=== PATIENT | female | born 1970 ===

== ENCOUNTER 2020-04-29 10:35 | Outpatient (REF) | payer MEDICAID, OTHER, SELFPAY ==
--- NOTE | ~2020-04-29 | MM_ITS ---
EXAMINATION: MM SCREENING DIGITAL BREAST TOMOSYNTHESIS, BILATERAL CLINICAL INFORMATION: Screening. Asymptomatic. The lifetime risk of breast cancer based on the Tyrer-Cuzick Model is 8%. COMPARISON: Mammography: 01/19/2019, and outside mammography 01/18/2018, 12/14/2016 ([facility]). TECHNIQUE: Digital breast tomosynthesis is performed in both the craniocaudal and mediolateral oblique views along with computer-aided detection (CAD). Synthesized 2D images are generated from the tomosynthesis. FINDINGS: There are scattered areas of fibroglandular density (ACR BI-RADS breast composition Category b). There are no significant masses, abnormal calcifications, or other abnormalities. There is no developing density. There are some vascular calcifications present in the bilateral medial and bilateral outer breasts. MM/MM tomosynthesis screening BI IMPRESSION: No mammographic evidence of malignancy. ASSESSMENT: BI-RADS 2: Benign RECOMMENDATION: Routine annual mammography screening. This patient's information was entered into a reminder system with a target due date for their next mammogram.
== END 2020-04-29 10:36 | disposition home or self-care (01) ==
LOC: HO.MAMMO 10:35
PROVIDERS: PCP Internal Medicine Geriatric Medicine; Visit Provider Internal Medicine Geriatric Medicine
DX: Z12.31 Encounter for screening mammogram for malignant neoplasm of breast (principal)
CPT/HCPCS: 77063; 77067

== ENCOUNTER 2020-11-14 16:59 | Outpatient (REF) | payer OTHER, SELFPAY | END 2020-11-14 17:00 | disposition home or self-care (01) | LOC: HO.SCI 16:59 | PROVIDERS: Visit Provider Internal Medicine Geriatric Medicine | DX: Z13.89 Encounter for screening for other disorder (principal) ==

== ENCOUNTER → 2020-12-11 10:50 | Outpatient (BNVA) | payer OTHER, MEDICAID, SELFPAY | PROVIDERS: PCP Internal Medicine Geriatric Medicine; Visit Provider Orthopaedic Surgery | DX: M65.332 Trigger finger, left middle finger (principal); M65.331 Trigger finger, right middle finger; R20.0 Anesthesia of skin; R20.2 Paresthesia of skin | CPT/HCPCS: 20550; J1100 ==

== ENCOUNTER 2021-01-16 07:26 | Day surgery (SDC) | payer OTHER, MEDICAID, SELFPAY ==
[2021-01-16 07:45] VITALS: BP 143/89; PULSE 100; RESP 16; TEMP 36.8; O2SAT 99
[2021-01-16 07:52] VITALS: BMI 26.5
--- NOTE | 2021-01-16 07:58 | MHC.SHP ---
Pre-Procedural Eval Section A Date of Service: 01/16/21 The patient is an INPATIENT: No Changes since office visit: No Cold of Flu in the past 2 weeks, No New Medical Problems, No Changes in Medication and No Patient answered all questions The History & Physical has been completed within 30 days and I have reviewed it.: Yes Section B Chief Complaint: trigger finger Allergies: Allergies Allergy/AdvReac Type Severity Reaction Status Date / Time No Known Allergies Allergy Verified 12/11/20 11:26 Plan I have reviewed the history and physical and performed a pertinent physical examination on my patient. No changes have occurred unless specified.
--- NOTE | 2021-01-16 07:58 | W.PM.OPN ---
Operative Note Operative Note Date of Service: 01/16/21 Narrative: Operative Note Preop diagnosis: 1. Left middle finger Trigger finger Postop diagnosis: 1. Left middle finger Trigger finger Procedure: 1. Left middle finger A1 jose antonio release 2. Left FDS tendon excision of intratendinous ganglion Surgeon: Jasmin Carter MD Anesthesia: local block using 1% lidocaine with epinephrine Findings: No locking or catching after A1 jose antonio release EBL: Less than 5 mL Tourniquet time: None Findings: Abrasion of the FDS tendon with some thickening, fibrosis and a small intratendinous ganglion. Complications: None Disposition: Brought to recovery room in stable condition Plan: Follow-up for 7-10 days for wound check and suture removal Indications: The patient is 50 years old, with a left middle finger trigger finger that has been unresponsive to nonoperative management. The risks and benefits of operative treatment including but not limited to risk of damage to blood vessels, nerves, tendons, infection, persistent pain, persistent symptoms, recurrence or possible need for additional surgery were discussed with the patient and the patient wishes to proceed with surgery. Procedure: Once consent was obtained a local block was performed in the preop area using a combination of 1% lidocaine with epinephrine. The patient was then brought back to the operating suite and placed on the operative table in supine position. A tourniquet was applied to the proximal aspect of the left upper extremity and the limb was prepped and draped in a standard surgical fashion. Once assured that we had a good block, a 1.5 cm oblique incision was made centered over the A1 jose antonio of the left middle finger . The incision was made through the skin to the subcutaneous tissues using a #15 blade. Careful dissection was made down to the level of the A1 jose antonio using tenotomy scissors, with care being taken to protect the nearby neurovascular structures. A longitudinal incision was made in the A1 jose antonio 1st using a #15 blade, then using tenotomy scissors under direct visualization. The A1 jose antonio was noted to be thickened. The FDS tendon was noted to have a small intertendinous ganglion as well as some fibrosis and thickening in the area of the A1 jose antonio and just distal to the A1 jose antonio. I used a 15. Blade and some tenotomy scissors to excise the small, approximately 2-3 mm ganglion from the flexor digitorum superficialis tendon. At this point I had the patient make a fist and extend her fingers numerous times, and we no longer saw any locking or catching of the digit with flexion and extension. Once satisfied with our A1 jose antonio release the wound was copiously irrigated with normal saline and hemostasis was obtained with a brief period of local pressure. The skin edges were reapproximated with some 5.0 nylon suture material and a sterile dressing was applied. The patient appears to have tolerated the procedure well and with no complications. All digits were well vascularized at the conclusion of the case.
[2021-01-16 09:30] VITALS: BP 133/84; PULSE 98; RESP 16; TEMP 36.5; O2SAT 99
== END 2021-01-16 09:56 | disposition home or self-care (01) ==
PROVIDERS: PCP Internal Medicine Geriatric Medicine; Visit Provider Orthopaedic Surgery
PROC: (CPT 26055; principal; 2021-01-16 08:30)
DX: M65.332 Trigger finger, left middle finger (principal); M67.442 Ganglion, left hand; R20.2 Paresthesia of skin; J30.2 Other seasonal allergic rhinitis; N95.1 Menopausal and female climacteric states
CPT/HCPCS: 26160; 26055

== ENCOUNTER 2021-01-23 10:25 | Outpatient (REF) | payer OTHER, MEDICAID, SELFPAY ==
--- NOTE | 2021-01-23 10:31 | EMG_ITS ---
Right median and ulnar motor and sensory studies were performed. Right radial sensory study was performed and paraspinal muscles were tested with a needle. 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 MD JT Soto/JOHNNY / [id number]
== END 2021-01-23 10:26 | disposition home or self-care (01) ==
LOC: HO.NEURO 10:25
PROVIDERS: Visit Provider Internal Medicine Geriatric Medicine
DX: G56.03 Carpal tunnel syndrome, bilateral upper limbs (principal); R20.0 Anesthesia of skin; R20.2 Paresthesia of skin
CPT/HCPCS: 95886; 95909

== ENCOUNTER → 2021-01-29 10:21 | Outpatient (BNVA) | payer OTHER, MEDICAID, SELFPAY | PROVIDERS: PCP Internal Medicine Geriatric Medicine; Visit Provider Orthopaedic Surgery ==

== ENCOUNTER 2021-02-03 09:42 | Day surgery (SDC) | payer OTHER, MEDICAID, SELFPAY ==
[2021-02-03 10:36] VITALS: BP 125/81; PULSE 73; RESP 16; TEMP 36.5; O2SAT 100
[2021-02-03 10:42] VITALS: BMI 26.5
--- NOTE | 2021-02-03 11:25 | P.OP_ITS ---
Operative Note Operative Note Date of Service: 02/03/21 Narrative: Preop diagnosis: 1. right Carpal tunnel syndrome 2. right middle finger trigger finger Postop diagnosis: same Procedure: 1. right Carpal tunnel release 2. right middle finger A1 jose antonio release Surgeon: Jasmin Carter MD Anesthesia: local block using 1% lidocaine with epinephrine Findings: Thickened transverse carpal ligament. no locking and catching after A1 jose antonio release EBL: Less than 5 mL Specimens: None Complications: None Disposition: Brought to recovery room in stable condition Plan: Follow-up for 10-14 days for wound check and suture removal Indications: The patient is 50 years old, with right carpal tunnel syndrome and right middle finger trigger finger that have been unresponsive to nonoperative management. The risks and benefits of operative treatment inc luding but not limited to risk of damage to blood vessels, nerves, tendons, infection, persistent pain, persistent symptoms, or possible need for additional surgery were discussed with the patient and the patient wishes to proceed with surgery. Procedure: Once consent was obtained a local block was performed using a combination of 1% lidocaine with epinephrine. The patient was then brought back to the operating suite and placed on the operative table in supine position. A tourniquet was applied to the proximal aspect of the right upper extremity and the limb was prepped and draped in a standard surgical fashion. Once assured that we had a good block, a 1.5 cm oblique incision was made centered over the A1 jose antonio of the right middle finger . The incision was made through the skin to the subcutaneous tissues using a #15 blade. Careful dissection was made down to the level of the A1 jose antoino using tenotomy scissors, with care being taken to protect the nearby neurovascular structures. A longitudinal incision was made in the A1 jose antonio 1st using a #15 blade, then using tenotomy scissors under direct visualization. The A1 jose antonio was noted to be thickened. Following our A1 jose antonio release, we no longer saw any locking or catching of the digit with flexion and extension. Once assured that we had a good block, a 1.5 cm longitudinal incision was made centered over the right carpal tunnel. The incision was made through the skin to the subcutaneous tissues using a #15 blade. Dissection was made down to the level of the transverse carpal ligament with care being taken to protect the palmar cutaneous nerve. Once the transverse carpal ligament was clearly visualized, a longitudinal incision was made in the transverse carpal ligament 1st using a #15 blade, then using tenotomy scissors under direct visualization. Care was taken to look for and protect the motor branch of the median nerve when seen in this area. Once satisfied with our carpal tunnel release the wound was copiously irrigated with normal saline and hemostasis was obtained with a brief period of local pressure. The skin edges were reapproximated with some 5.0 nylon suture material and a sterile dressing was applied. The patient appears to have tolerated the procedure well and with no complications. All digits were well vascularized at the conclusion of the case.
--- NOTE | 2021-02-03 11:25 | MHC.SHP ---
Pre-Procedural Eval Section A Date of Service: 02/03/21 The patient is an INPATIENT: No Changes since office visit: No Cold of Flu in the past 2 weeks, No New Medical Problems, No Changes in Medication and No Patient answered all questions The History & Physical has been completed within 30 days and I have reviewed it.: Yes Section B Chief Complaint: carpal tunnel release,trigger finger release Allergies: Allergies Allergy/AdvReac Type Severity Reaction Status Date / Time No Known Allergies Allergy Verified 12/11/20 11:26 Plan I have reviewed the history and physical and performed a pertinent physical examination on my patient. No changes have occurred unless specified.
[2021-02-03 13:05] VITALS: BP 132/81; PULSE 83; RESP 16; TEMP 36.6; O2SAT 98
== END 2021-02-03 13:57 ==
LOC: HO.SSS 09:42
PROVIDERS: PCP Internal Medicine Geriatric Medicine; Visit Provider Orthopaedic Surgery
PROC: (CPT 64721; principal; 2021-02-03 12:10)
DX: G56.01 Carpal tunnel syndrome, right upper limb (principal); M65.331 Trigger finger, right middle finger; J30.2 Other seasonal allergic rhinitis; N95.1 Menopausal and female climacteric states
CPT/HCPCS: 64721; 26055

== ENCOUNTER → 2021-02-18 12:20 | Outpatient (BNVA) | payer OTHER, MEDICAID, SELFPAY | PROVIDERS: PCP Internal Medicine Geriatric Medicine; Visit Provider Physician Assistant ==

== ENCOUNTER → 2021-03-12 09:23 | Outpatient (BNVA) | payer OTHER, MEDICAID, SELFPAY | PROVIDERS: PCP Internal Medicine Geriatric Medicine; Visit Provider Orthopaedic Surgery ==

== ENCOUNTER 2021-05-07 10:27 | Outpatient (REF) | payer OTHER, SELFPAY ==
--- NOTE | ~2021-05-07 | MM_ITS ---
EXAMINATION: MM SCREENING DIGITAL BREAST TOMOSYNTHESIS, BILATERAL CLINICAL INFORMATION: Screening. Asymptomatic. The lifetime risk of breast cancer based on the Tyrer-Cuzick Model is 6.7%. COMPARISON: Mammography: April 29, 2020 and studies dating back to December 10, 2015 TECHNIQUE: Digital breast tomosynthesis is performed in both the craniocaudal and mediolateral oblique views along with computer-aided detection (CAD). Synthesized 2D images are generated from the tomosynthesis. FINDINGS: The breasts are heterogeneously dense, which may obscure small masses (ACR BI-RADS breast composition Category c). There are no significant masses, abnormal calcifications, or other abnormalities. MM/MM tomosynthesis screening BI IMPRESSION: There are no significant changes from prior study. ASSESSMENT: BI-RADS 1: Negative RECOMMENDATION: Routine annual mammography screening. This patient's information was entered into a reminder system with a target due date for their next mammogram.
== END 2021-05-07 10:28 | disposition home or self-care (01) ==
LOC: HO.MAMMO 10:27
PROVIDERS: PCP Internal Medicine Geriatric Medicine; Visit Provider Internal Medicine Geriatric Medicine
DX: Z12.31 Encounter for screening mammogram for malignant neoplasm of breast (principal)
CPT/HCPCS: 77063; 77067

== ENCOUNTER → 2021-05-20 10:24 | Outpatient (BNVA) | payer OTHER, SELFPAY | PROVIDERS: PCP Internal Medicine Geriatric Medicine; Visit Provider Orthopaedic Surgery | DX: Z13.89 Encounter for screening for other disorder (principal) ==

== ENCOUNTER 2021-05-21 08:04 | Outpatient (REF) | payer OTHER, SELFPAY ==
--- NOTE | 2021-05-21 08:09 | EMG_ITS ---
This is a 51-year-old woman with a 9-month history of left upper extremity pain and numbness. On examination, she is alert, oriented with normal intellectual functions. Cranial nerves II through XII are normal. She has mild atrophy of the left abductor pollicis brevis with decreased sensation in the median nerve distribution. IMPRESSION: Carpal tunnel syndrome. Nerve conduction EMG study: Moderately severe carpal tunnel syndrome on the left. Normal EMG of the left C5-T1 innervated muscles. MD SHANE Alexandra/JOHNNY / [id number]
== END 2021-05-21 08:05 | disposition home or self-care (01) ==
LOC: HO.NEURO 08:04
PROVIDERS: Visit Provider Orthopaedic Surgery
DX: R20.0 Anesthesia of skin (principal); R20.2 Paresthesia of skin
CPT/HCPCS: 95885; 95910

== ENCOUNTER 2021-08-28 07:28 | Day surgery (SDC) | payer OTHER, SELFPAY ==
[2021-08-28 06:59] VITALS: BMI 26.5
--- NOTE | 2021-08-28 07:45 | W.PM.OPN ---
Operative Note Operative Note Date of Service: 08/28/21 Narrative: Operative Note Preop diagnosis: 1. right ring finger Trigger finger 2. Right trigger thumb Postop diagnosis: same Procedure: 1. right ring finger A1 jose antonio release 2. Right thumb A1 jose antonio release Surgeon: Jasmin Carter MD Anesthesia: local block using 1% lidocaine with epinephrine Findings: No locking or catching after A1 jose antonio release EBL: Less than 5 mL Tourniquet time: None Specimens: None Complications: None Disposition: Brought to recovery room in stable condition Plan: Follow-up for 10-14 days for wound check and suture removal Indications: The patient is 51 years old, with a right trigger thumb and right ring finger trigger finger that have been unresponsive to nonoperative management. The risks and benefits of operative treatment including but not limited to risk of damage to blood vessels, nerves, tendons, infection, persistent pain, persistent symptoms, recurrence or possible need for additional surgery were discussed with the patient and the patient wishes to proceed with surgery. Procedure: Once consent was obtained a local block was performed in the preop area using a combination of 1% lidocaine with epinephrine. The patient was then brought back to the operating suite and placed on the operative table in supine position. A tourniquet was applied to the proximal aspect of the right upper extremity and the limb was prepped and draped in a standard surgical fashion. Once assured that we had a good block, a 1.5 cm oblique incision was made centered over the A1 jose antonio of the right ring finger . The incision was made through the skin to the subcutaneous tissues using a #15 blade. Careful dissection was made down to the level of the A1 jose antonio using tenotomy scissors, with care being taken to protect the nearby neurovascular structures. A longitudinal incision was made in the A1 jose antonio 1st using a #15 blade, then using tenotomy scissors under direct visualization. The A1 jose antonio was noted to be thickened. Following our A1 jose antonio release, we no longer saw any locking or catching of the digit with flexion and extension. Once assured that we had a good block, a 1.5 cm oblique incision was made centered over the A1 jose antonio of the right thumb . The incision was made through the skin to the subcutaneous tissues using a #15 blade. Careful dissection was made down to the level of the A1 jose antonio using tenotomy scissors, with care being taken to protect the nearby neurovascular structures. A longitudinal incision was made in the A1 jose antonio 1st using a #15 blade, then using tenotomy scissors under direct visualization. The A1 jose antonio was noted to be thickened. Following our A1 jose antonio release, we no longer saw any locking or catching of the digit with flexion and extension. Once satisfied with our A1 jose antonio release the wounds were copiously irrigated with normal saline and hemostasis was obtained with a brief period of local pressure. The skin edges were reapproximated with some 5.0 nylon suture material and a sterile dressing was applied. The patient appears to have tolerated the procedure well and with no complications. All digits were well vascularized at the conclusion of the case.
[2021-08-28 07:46] VITALS: BP 142/53; PULSE 71; RESP 18; TEMP 36.8; O2SAT 99
[2021-08-28 09:46] VITALS: BP 139/74; PULSE 73; RESP 18; TEMP 36.2; O2SAT 97
--- NOTE | 2021-08-28 09:49 | MHC.SHP ---
Pre-Procedural Eval Section A Date of Service: 08/28/21 The patient is an INPATIENT: No Changes since office visit: No Cold of Flu in the past 2 weeks, No New Medical Problems, No Changes in Medication and No Patient answered all questions The History & Physical has been completed within 30 days and I have reviewed it.: Yes Section B Chief Complaint: trigger finger and thumb Allergies: Allergies Allergy/AdvReac Type Severity Reaction Status Date / Time No Known Allergies Allergy Verified 05/20/21 10:35 Plan I have reviewed the history and physical and performed a pertinent physical examination on my patient. No changes have occurred unless specified.
== END 2021-08-28 10:05 | disposition home or self-care (01) ==
PROVIDERS: PCP Internal Medicine Geriatric Medicine; Visit Provider Orthopaedic Surgery
PROC: (CPT 26055; principal; 2021-08-28 08:40)
DX: M65.311 Trigger thumb, right thumb (principal); M65.341 Trigger finger, right ring finger; R20.0 Anesthesia of skin
CPT/HCPCS: 26055 ×2; J0171

== ENCOUNTER 2022-05-20 09:15 | Outpatient (REF) | payer OTHER, SELFPAY ==
--- NOTE | ~2022-05-20 | MM_ITS ---
EXAMINATION: MM SCREENING DIGITAL BREAST TOMOSYNTHESIS, BILATERAL CLINICAL INFORMATION: Screening. Asymptomatic. The lifetime risk of breast cancer based on the Tyrer-Cuzick Model is 7%. COMPARISON: Mammography: 05/07/2021, 04/29/2020, 01/19/2019; outside mammography 01/18/2018. TECHNIQUE: Digital breast tomosynthesis is performed in both the craniocaudal and mediolateral oblique views along with computer-aided detection (CAD). Synthesized 2D images are generated from the tomosynthesis. FINDINGS: There are scattered areas of fibroglandular density (ACR BI-RADS breast composition Category b). There are no significant masses, abnormal calcifications, or other abnormalities. Parenchymal pattern is similar to prior studies. There are scattered minor asymmetries similar to prior exams. No developing density or architectural abnormality. The axilla are unremarkable. No significant changes. MM/MM tomosynthesis screening BI IMPRESSION: No mammographic evidence of malignancy. ASSESSMENT: BI-RADS 1: Negative RECOMMENDATION: Routine annual mammography screening. This patient's information was entered into a reminder system with a target due date for their next mammogram.
== END 2022-05-20 09:16 | disposition home or self-care (01) ==
LOC: HO.MAMMO 09:15
PROVIDERS: PCP Internal Medicine Geriatric Medicine; Visit Provider Internal Medicine Geriatric Medicine
DX: Z12.31 Encounter for screening mammogram for malignant neoplasm of breast (principal)
CPT/HCPCS: 77063; 77067

== ENCOUNTER 2022-10-14 10:30 | Outpatient (AMB) | payer OTHER, SELFPAY ==
--- NOTE | 2022-10-14 10:34 | MHC.OFFVIS ---
Intake Vital Signs 10/14/22 10:37 Height 5 ft Weight 148 lb BMI 28.9 BP 152/105 H Blood Pressure Location Lt brachial Position Sitting Pulse 78 Intake Visit Reasons: Colonoscopy Screening Intake Note: Patient new consult for 1st pre colonoscopy screening. Patient cc: occasional constipation and some GERD. Denies any other GI issues. Clearing Distribution Clerk Required: Yes Clearing Distribution Clerk Name: Archana [facility] [place] Accompanied by: Self / Same As Patient Allergies No Known Allergies Allergy (Verified 10/14/22 10:34) Medication List - Last Reconciled 10/14/22 by Julia Tejada PA-C bisacodyl (Dulcolax (bisacodyl)) 20 mg (4 x 5 mg) PO ONCE 1 day cetirizine 5 mg PO DAILY PRN hydrocodone-acetaminophen 5-325 mg 1 tab PO Q4-6H PRN polyethylene glycol 3350 (Miralax) 238 grams PO ONCE PRN 1 day venlafaxine 25 mg PO DAILY HPI HPI Comments History of Present Illness Details A 52-year-old female referred for screening colonoscopy-no known family history of GI cancer Bowels normal, appetite is good No cardiac or respiratory issues No nausea, vomiting, hematemesis, hematochezia fever or chills PFSH Medical History (Updated 10/14/22 @ 11:00 by Julia Tejada PA-C) Menopausal hot flushes Seasonal allergies Surgical History Hx of bilateral oophorectomy Hx of hand surgery Hx of ovarian cystectomy Family History (Updated 10/14/22 @ 10:47 by Treav Fenton) Mother Diabetes Renal failure Father Asthma Social History (Updated 10/14/22 @ 10:46 by Julia Tejada PA-C) Household Members Other:: Patient Tobacco Use Status: Never used Tobacco Current occupational status: employed Current occupation: rt hand / cook Review of Systems Const All systems reviewed & are unremarkable except as noted in HPI and below Card Denies chest pain and Denies dyspnea Resp Denies dyspnea GI Denies abdominal pain, Denies heartburn, Denies nausea and Denies vomiting Physical Exam Vital Signs: Last Vital Signs Pulse 78 10/14/22 10:37 BP 152/105 H 08/30/23 10:37 BMI result Body Mass Index 28.9 Const General: cooperative, healthy appearing, comfortable and no acute distress Orientation/consciousness: patient oriented x3 Limitations: language barrier Eyes Sclerae: sclerae normal Resp Effort & Inspection: normal respiratory effort and able to speak in complete sentences Auscultation: clear to auscultation bilaterally, no rales, no rhonchi and no wheezes Cardio Rate: regular rate Rhythm: regular rhythm Heart sounds: S1 normal heart sound present and S2 normal heart sound present GI Palpation (GI): Soft to palpation and nontender Auscultation: normal bowel sounds Skin General skin exam: no rashes or lesions noted Neuro General: patient oriented x3 Extrem General: Yes full ROM Psych Appearance: grossly normal and well kempt Mental Status: mental status grossly normal Speech and movement: Normal speech and movement present and Clear speech present Affect: normal affect Attitude: cooperative Thought process: Normal thought process present Thought content: Normal thought content present Insight: Good insight present (Psych) Judgement: Good judgement present (Psych) Assessment & Plan Assessment & Plan (1) Encounter for screening colonoscopy: Comment: No GI complaints Code(s): Z12.11 - Encounter for screening for malignant neoplasm of colon Plan: Index screening colonoscopy Plan Screening colonoscopy MiraLax Gatorade split-needs assembler product Orders: Orders Colonoscopy - GI Use Only Today Z12.11 - Encounter for screening for malignant neoplasm of colon Medications: New bisacodyl (Dulcolax (bisacodyl)) Take 4 tablets by mouth at 12:00pm the day before your procedure. 20 mg (4 x 5 mg) PO ONCE 1 day 4 tabs 0RF colonoscopy prep Z12.11 - Encounter for screening for malignant neoplasm of colon polyethylene glycol 3350 (Miralax) Take as directed by mouth the day before your procedure. 238 grams PO ONCE 1 day PRN 238 grams 0RF laxative effect Patient Instructions: Index screening colonoscopy, MiraLax Gatorade split prep Discussed procedure, rare risks, need for escorted due to anesthesia Encouraged to call questions or concerns Appreciate the opportunity assist in the care the patient Coding Level of Care Code New Pt Level 3 (39530) Diagnoses Encounter for screening colonoscopy Z12.11 Time Spent (min) 25 Comment Clearing Distribution Clerk, Archana
[2022-10-14 10:37] VITALS: BP 152/105; PULSE 78; BMI 28.9
== END 2022-10-14 13:28 | disposition home or self-care (01) ==
PROVIDERS: PCP Internal Medicine Geriatric Medicine; Visit Provider Physician Assistant
DX: Z01.818 Encounter for other preprocedural examination (principal); Z12.11 Encounter for screening for malignant neoplasm of colon
CPT/HCPCS: S0285

== ENCOUNTER → 2022-10-14 10:30 | Outpatient (BNVA) | payer OTHER, SELFPAY | PROVIDERS: PCP Internal Medicine Geriatric Medicine; Visit Provider Physician Assistant ==

== ENCOUNTER 2023-01-13 08:06 | Outpatient (AMB) | payer OTHER, SELFPAY ==
--- NOTE | 2023-01-13 09:11 | A.OFFVIS_ITS ---
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 States her pain is mainly at the base of her thumb. States pain started about 2 month ago and has worsen especially with twisting of wrist, pinching and grabbing movement. patient would like to discuss injection. 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 She denies any kind of fall or injury. She complains of right radial-sided wrist pain, worse with pinching, gripping, and twisting activities. She has known left carpal tunnel syndrome, which was not discussed today. FOR[facility]LY [facility], LATER [facility] Medical History (Updated 01/13/23 @ 09:31 by Milton Coates) Menopausal hot flushes Seasonal allergies Surgical History Hx of bilateral oophorectomy Hx of hand surgery Hx of ovarian cystectomy Family History (Updated 10/14/22 @ 10:47 by Treva Fenton) Mother Diabetes Renal failure Father Asthma Social History Household Members Other:: Patient Tobacco Use Status: Never used Tobacco Current occupational status: employed Current occupation: rt hand / cook Review of Systems Const All systems reviewed & are unremarkable except as noted in HPI and below Physical Exam Vital Signs: BMI result Body Mass Index 28.9 Const General: no acute distress and alert Orientation/consciousness: patient oriented x3 Neuro General: patient oriented x3 Extrem Other: Evaluation of right Upper Extremity: The patient is alert, oriented, and in no acute distress Neuro: Median, Ulnar, Radial nerves motor and sensory intact and sensation is normal to the tips of all digits No thenar or intrinsic wasting Good APB muscle belly firing and good finger cross Vascular: Cap refill brisk ROM: She can make a fist and extend all her digits No locking or catching Tender over the 1st dorsal compartment Pos Clari test on the right, negative on the left. No tenderness over the basal joint No tenderness over the MCP joint Nerve Conduction Study: IMPRESSION: Moderately severe carpal tunnel syndrome on the left. Normal EMG of the left C5-T1 innervated muscles. Elmer Jacobo MD 05/21/21 Psych Appearance: grossly normal Affect: normal affect Attitude: cooperative Office Procedures Fracture Care Details: No fracture, injection [id number] Fracture Billing Code: Fracture Billing Code Assessment & Plan Assessment & Plan (1) Carpal tunnel syndrome of left wrist: Code(s): G56.02 - Carpal tunnel syndrome, left upper limb (2) De Quervain's tenosynovitis, right: Code(s): M65.4 - Radial styloid tenosynovitis [de Quervain] Plan Assessment and plan: 1. Right De Quervain's Tenosynovitis Positive Clari test This is her most symptomatic complaint. I educated her about this condition I discussed operative and non-operative treatment options The patient would like to proceed with an injection I discussed activity modification, she is to limit or avoid any heavy or repetitive pinching, gripping, or twisting activities She was fitted for a comfort cool brace to wear with daily activity Injection #1: The risks and benefits of a steroid injection including but not limited to risk of damage to blood vessels, nerves, tendons, infection, skin bleaching, failure to improve symptoms, increased pain, and possible need for further injections or other intervention were discussed with the patient and the patient wishes to proceed with the steroid injection. Once consent was obtained, I sterilely prepped the area over the 1st dorsal compartment of the Right thumb. I then injected the 1st dorsal compartment with a combination of 1 mL of dexamethasone (4mg/ml), and 1% lidocaine. The patient tolerated the procedure well with no complications and good resolution of their symptoms prior to leaving clinic. If the patient continues to have pain 6-8 weeks following this injection, they may call to schedule appointment to discuss alternative treatment options She will follow up prn 2. Left Carpal tunnel syndrome, moderate-severe Symptoms intermittent, not daily No complaint about this today. 3. Right trigger thumb, S/P release 4. Right ring finger trigger finger, S/P release DOS: 08/28/22 With full resolution of her symptoms 5. Right carpal tunnel syndrome, S/P release DOS: 02/03/21 She has had good resolution of her symptoms 6. Right middle finger trigger finger, S/P release DOS: 02/03/21 Good resolution of symptoms Scribed for Jasmin Carter MD by Milton Coates, medical record clerk, on 01/13/23 at 9:30 AM, EST. Coding Level of Care Code Est Pt Level 3 (20155) Diagnoses Carpal tunnel syndrome of left wrist G56.02 De Quervain's tenosynovitis, right M65.4 CPT Codes Fracture Care - Fracture Billing Code: Fracture Billing Code ([id number])
[2023-01-13 09:15] VITALS: BMI 28.9
== END 2023-01-13 09:51 | disposition home or self-care (01) ==
PROVIDERS: PCP Internal Medicine Geriatric Medicine; Visit Provider Orthopaedic Surgery
DX: G56.02 Carpal tunnel syndrome, left upper limb (principal); M65.4 Radial styloid tenosynovitis [de Quervain]
CPT/HCPCS: 20550; 99213

== ENCOUNTER → 2023-01-13 08:06 | Outpatient (BNVA) | payer OTHER, SELFPAY | PROVIDERS: PCP Internal Medicine Geriatric Medicine; Visit Provider Orthopaedic Surgery | DX: M65.4 Radial styloid tenosynovitis [de Quervain] (principal); G56.02 Carpal tunnel syndrome, left upper limb | CPT/HCPCS: 20550; J1100 ==

== ENCOUNTER 2023-05-26 09:16 | Outpatient (REF) | payer OTHER, SELFPAY | END 2023-05-26 09:17 | disposition home or self-care (01) | LOC: HO.MAMMO 09:16 | PROVIDERS: PCP Internal Medicine Geriatric Medicine; Visit Provider Internal Medicine Geriatric Medicine | DX: Z12.31 Encounter for screening mammogram for malignant neoplasm of breast (principal) | CPT/HCPCS: 77063; 77067 ==

== ENCOUNTER → 2023-05-26 09:30 | Outpatient (BNV) | payer OTHER, SELFPAY | PROVIDERS: PCP Internal Medicine Geriatric Medicine; Visit Provider Radiology Diagnostic Radiology | DX: Z12.31 Encounter for screening mammogram for malignant neoplasm of breast (principal) | CPT/HCPCS: 77063; 77067 ==

== ENCOUNTER 2023-06-02 09:42 | Outpatient (AMB) | payer OTHER, SELFPAY ==
[2023-06-02 10:31] VITALS: BMI 28.9
--- NOTE | 2023-06-02 10:31 | A.OFFVIS_ITS ---
Intake Vital Signs 06/02/23 10:31 Height 5 ft Weight 148 lb BMI 28.9 Intake Visit Reasons: Newprob-LT DeQuervains tendonitis Intake Note: Mini 53 yr old right hand dominant female presents today for a new problem visit for her left hand/wrist and thumb pain. States she is ready to discuss CTR for her left hand as well as a possible trigger release as discussed in her prior visit. She also mentioned she is having in her wrist when she uses her hand alot through out the day. EMG for her left hand done in 2021. Allergies No Known Allergies Allergy (Verified 06/02/23 10:38) HPI Newprob-LT DeQuervains tendonitis HPI Details Ingris is a 53 year old right hand dominant Indonesian speaking woman who returns with complaints of new left thumb pain & hand numbness. She complains of painful locking of her left thumb. She complains of numbness in her left thumb, index, and middle fingers. 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 [facility]LY [facility] Medical History (Updated 06/02/23 @ 10:51 by Milton Coates) Menopausal hot flushes Seasonal allergies Surgical History Hx of hand surgery Hx of bilateral oophorectomy Hx of ovarian cystectomy Family History (Updated 10/14/22 @ 10:47 by Treva Fenton) Mother Diabetes Renal failure Father Asthma Social History Household Members Other:: Patient Tobacco Use Status: Never used Tobacco Current occupational status: employed Current occupation: rt hand / cook Physical Exam Vital Signs: BMI result Body Mass Index 28.9 Const General: no acute distress and alert Orientation/consciousness: patient oriented x3 Neuro General: patient oriented x3 Extrem Other: Evaluation of left Upper Extremity: The patient is alert, oriented, and in no acute distress Neuro: Decreased subjective sensation in the median nerve distribution today in clinic. Normal sensation in the ulnar nerve distribution No thenar or intrinsic wasting Good APB muscle belly firing and good finger cross Vascular: Cap refill brisk ROM: She can make a fist and extend all her digits Visible and palpable locking & catching of the thumb Tender over the thumb a1 jose antonio Negative Clari test No tenderness over the 1st dorsal compartment Nerve Conduction Study: IMPRESSION: Moderately severe carpal tunnel syndrome on the left. Normal EMG of the left C5-T1 innervated muscles. Elmer Jacobo MD 05/21/21 Psych Appearance: grossly normal Affect: normal affect Attitude: cooperative Assessment & Plan Assessment & Plan (1) Carpal tunnel syndrome of left wrist: Code(s): G56.02 - Carpal tunnel syndrome, left upper limb (2) Trigger thumb, left thumb: Code(s): M65.312 - Trigger thumb, left thumb Plan Assessment and plan: 1. Left trigger thumb 2. Left Carpal tunnel syndrome, moderate-severe Dense numbness I educated her about these conditions I discussed operative and non-operative treatment options The patient would like to proceed with surgery The risks and benefits of operative treatment were discussed with the patient and the patient wishes to proceed with surgery. These risks include, but are not limited to risk of damage to blood vessels, nerves, tendons, infection, recurrence, incomplete relief of preoperative symptoms, persistent pain, possible need for further surgery and the risks associated with regional blocks and anesthesia. The plan is to take the patient to the operating room sometime in the next few weeks for the following procedures: 1. Left trigger thumb release, under local 2. Left carpal tunnel release, under local All of the preoperative paperwork including the consent was reviewed today. All the patient's questions were answered. The patient understands that they will be contacted by our newborn hearing screener soon to schedule this procedure. She would like this done at the end of August, after 09/05/23, as her restaurant will be closed for the following weeks and she will not have to miss work. She denies Diabetes, blood thinners, asthma, heart, lung, kidney issues 3. Right De Quervain's Tenosynovitis, S/P injection Date of Injection: 01/13/23 No complaints today 4. Right trigger thumb, S/P release 5. Right ring finger trigger finger, S/P release DOS: 08/28/22 With full resolution of her symptoms 6. Right carpal tunnel syndrome, S/P release DOS: 02/03/21 She has had good resolution of her symptoms 7. Right middle finger trigger finger, S/P release DOS: 02/03/21 Good resolution of symptoms Scribed for Jasmin Carter MD by Milton Coates, medical corps officer, on at 10:50 AM, EST. Coding Level of Care Code Est Pt Level 4 (85458) Diagnoses Carpal tunnel syndrome of left wrist G56.02 Trigger thumb, left thumb M65.312
== END 2023-06-02 10:54 | disposition home or self-care (01) ==
PROVIDERS: PCP Internal Medicine Geriatric Medicine; Visit Provider Orthopaedic Surgery
DX: G56.02 Carpal tunnel syndrome, left upper limb (principal); M65.312 Trigger thumb, left thumb
CPT/HCPCS: 99214

== ENCOUNTER → 2023-06-02 09:42 | Outpatient (BNVA) | payer OTHER, SELFPAY | PROVIDERS: PCP Internal Medicine Geriatric Medicine; Visit Provider Orthopaedic Surgery ==

== ENCOUNTER 2023-06-22 | Outpatient (REF) | payer OTHER, SELFPAY ==
[2023-06-17 13:16] LABS: BV Int Neg Control Negative (Negative); BV Int Pos Control Positive (Positive)
[2023-06-23 23:39] LABS: HPV mRNA E6/E7 rflx Not Detected (Not Detected)
== END 2023-06-22 00:01 | disposition home or self-care (01) ==
LOC: HO.HHCLNP
PROVIDERS: Visit Provider Advanced Practice Midwife
DX: Z12.4 Encounter for screening for malignant neoplasm of cervix (principal); Z11.51 Encounter for screening for human papillomavirus (HPV); N89.8 Other specified noninflammatory disorders of vagina
CPT/HCPCS: 87480; 87510; 87624; 87660; 88142

== ENCOUNTER 2023-09-13 08:03 | Day surgery (SDC) | payer OTHER, SELFPAY ==
[2023-09-13 08:43] VITALS: BP 146/97; PULSE 85; RESP 16; TEMP 36.1; O2SAT 98; BMI 28.9
--- NOTE | 2023-09-13 09:29 | MHC.SHP ---
Pre-Procedural Eval Section A - 24 Hr Update-Section A only Date of Service: 09/13/23 The patient is an INPATIENT: No Changes since office visit: No Cold of Flu in the past 2 weeks, No New Medical Problems, No Changes in Medication and No Patient answered all questions The patient has been examined within 24 hours of the surgical procedure. The History & Physical has been completed within 30 days and I have reviewed it.: Yes Section B - Complete if H&P > 30 days Chief Complaint: carparl tunnel release,trigger release Allergies: Allergies Allergy/AdvReac Type Severity Reaction Status Date / Time No Known Allergies Allergy Verified 06/02/23 10:38 Exam Exam Comment: Left carpal tunnel syndrome and left trigger thumb Plan Diagnosis/Plan: Unchanged I have reviewed the history and physical and performed a pertinent physical examination on my patient. No changes have occurred unless specified. Time Spent With Patient Time: Total time managing care of this patient today ____ minutes.
--- NOTE | 2023-09-13 09:30 | W.PM.OPN ---
Operative Note Operative Note Date of Service: 09/13/23 Narrative: Preop diagnosis: 1. Left Carpal tunnel syndrome 2. Left trigger thumb Postop diagnosis: same Procedure: 1. Left Carpal tunnel release 2. Left trigger thumb release Surgeon: Jasmin Carter MD Occupational Health Physiotherapist: None Anesthesia: local block using 1% lidocaine with epinephrine Findings: Thickened transverse carpal ligament. EBL: Less than 5 mL Specimens: None Complications: None Disposition: Brought to recovery room in stable condition Plan: Follow-up for 10-14 days for wound check and suture removal Indications: The patient is 53 years old, with left carpal tunnel syndrome and a left trigger thumb that have been unresponsive to nonoperative management. The risks and benefits of operative treatment including but not limited to risk of damage to blood vessels, nerves, tendons, infection, persistent pain, persistent symptoms, or possible need for additional surgery were discussed with the patient and the patient wishes to proceed with surgery. Procedure: Once consent was obtained a local block was performed using a combination of 1% lidocaine with epinephrine. The patient was then brought back to the operating suite and placed on the operative table in supine position. The left upper extremity was prepped and draped in a standard surgical fashion. Once assured that we had a good block, a 1.5 cm oblique incision was made centered over the A1 jose antonio of the left thumb . The incision was made through the skin to the subcutaneous tissues using a #15 blade. Careful dissection was made down to the level of the A1 jose antonio using tenotomy scissors, with care being taken to protect the nearby neurovascular structures. A longitudinal incision was made in the A1 jose antonio 1st using a #15 blade, then using tenotomy scissors under direct visualization. The A1 jose antonio was noted to be thickened. Following our A1 jose antonio release, we no longer saw any locking or catching of the digit with flexion and extension. Once assured that we had a good block, a 2.0 cm longitudinal incision was made centered over the left carpal tunnel. The incision was made through the skin to the subcutaneous tissues using a #15 blade. Dissection was made down to the level of the transverse carpal ligament with care being taken to protect the palmar cutaneous nerve. Once the transverse carpal ligament was clearly visualized, a longitudinal incision was made in the transverse carpal ligament 1st using a #15 blade, then using tenotomy scissors under direct visualization. Care was taken to look for and protect the motor branch of the median nerve when seen in this area. Once satisfied with our carpal tunnel release the wound was copiously irrigated with normal saline and hemostasis was obtained with a brief period of local pressure. The skin edges were reapproximated with some 5.0 nylon suture material and a sterile dressing was applied. The patient appears to have tolerated the procedure well and with no complications. All digits were well vascularized at the conclusion of the case.
[2023-09-13 10:57] VITALS: BP 119/71; PULSE 80; RESP 16; O2SAT 98
== END 2023-09-13 10:59 | disposition home or self-care (01) ==
PROVIDERS: PCP Internal Medicine Geriatric Medicine; Visit Provider Orthopaedic Surgery
PROC: (CPT 64721; principal; 2023-09-13 09:30)
PROC: (CPT 26055; 2023-09-13 09:30)
DX: G56.02 Carpal tunnel syndrome, left upper limb (principal); M65.312 Trigger thumb, left thumb; R20.0 Anesthesia of skin; J30.2 Other seasonal allergic rhinitis; Z98.890 Other specified postprocedural states
CPT/HCPCS: 64721; 26055; J0171

== ENCOUNTER → 2023-09-13 08:03 | Outpatient (BNV) | payer OTHER, SELFPAY | PROVIDERS: PCP Internal Medicine Geriatric Medicine; Visit Provider Orthopaedic Surgery | DX: G56.02 Carpal tunnel syndrome, left upper limb (principal); M65.312 Trigger thumb, left thumb | CPT/HCPCS: 26055; 64721 ==

== ENCOUNTER 2023-09-29 12:00 | Outpatient (AMB) | payer OTHER, SELFPAY ==
--- NOTE | 2023-09-29 12:06 | MHC.OFFVIS ---
Intake Visit Reasons: PO LT CTR LT thumb trigger 09/13/23 AR Intake Note: Mini is a 53 yo right hand dominant female who presents today post operatively s/p left CTR and left thumb trigger release done by Dr. Carter, DOS 09/13/23. Patient reports tenderness around incision. Denies numbness, tingling, and locking on finger. Sutures removed in office today and steri strips applied. District Plant Engineer Required: Yes District Plant Engineer Language: Shower Attendant Services: District Plant Engineer Present District Plant Engineer Name: MANOLO Parker/MEGHNA Information Interpreted: clinical only Allergies No Known Allergies Allergy (Verified 09/29/23 12:22) HPI HPI PO LT CTR LT thumb trigger 09/13/23 AR: Details: Ingris is a 53 year old right hand dominant Ghanaian speaking woman who returns S/P left carpal tunnel & trigger thumb release, DOS: 09/13/23 She says she is doing well, and her sensation is now normal. She reports some tenderness about her incision but says this is tolerable. 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 [facility] Medical History (Updated 06/02/23 @ 10:51 by Milton Coates) Menopausal hot flushes Seasonal allergies Surgical History Hx of hand surgery Hx of bilateral oophorectomy Hx of ovarian cystectomy Family History (Updated 10/14/22 @ 10:47 by Treva Fenton) Mother Diabetes Renal failure Father Asthma Social History Household Members Other:: Comment: counts correct Patient Tobacco Use Status: Never used Tobacco Current occupational status: employed Current occupation: rt hand / cook Review of Systems Const All systems reviewed & are unremarkable except as noted in HPI and below Physical Exam Const General: no acute distress and alert Orientation/consciousness: patient oriented x3 Neuro General: patient oriented x3 Extrem Other: The patient was alert oriented and in no acute distress The incision is healing well with no erythema drainage or evidence of infection. Sutures removed and Steri-Strips applied She can make a fist and extend all her digits No locking or catching Sensation is intact and now normal in the median nerve distribution Cap refill is brisk Psych Appearance: grossly normal Affect: normal affect Attitude: cooperative Assessment & Plan Assessment & Plan (1) Carpal tunnel syndrome of left wrist: Code(s): G56.02 - Carpal tunnel syndrome, left upper limb Category: Medical (2) Trigger thumb, left thumb: Code(s): M65.312 - Trigger thumb, left thumb Category: Medical Plan Assessment and plan: 1. Left trigger thumb, S/P release DOS: 09/13/23 2. Left Carpal tunnel syndrome, S/P release DOS: 09/13/23 Pre-operatively with dense numbness Now with improving sensation The patient appears to be doing well post-operatively I educated her about the post-operative course I discussed activity modifications, she is to lift nothing heavier than a cellphone for the next two weeks She will perform gentle ROM exercises at home She should avoid any underwater activities for the next 5 days She should gently massage about the incision site to reduce the risk of hypersensitivity She can follow up prn 3. Right De Quervain's Tenosynovitis, S/P injection Date of Injection: 01/13/23 No complaints today 4. Right trigger thumb, S/P release 5. Right ring finger trigger finger, S/P release DOS: 08/28/22 With full resolution of her symptoms 6. Right carpal tunnel syndrome, S/P release DOS: 02/03/21 She has had good resolution of her symptoms 7. Right middle finger trigger finger, S/P release DOS: 02/03/21 Good resolution of symptoms Scribed for Jasmin Carter MD by josé Noe scribe, on 09/29/23 at 12:40 PM, EST. Scribe Plan - Not visible on output: Scribed for Jasmin Carter MD by josé Noe scribe, on [ ] at [ ], EST. Coding Level of Care Code Global (93195) Diagnoses Carpal tunnel syndrome of left wrist G56.02 Trigger thumb, left thumb M65.312
== END 2023-09-29 13:05 | disposition home or self-care (01) ==
PROVIDERS: PCP Internal Medicine Geriatric Medicine; Visit Provider Orthopaedic Surgery
DX: G56.02 Carpal tunnel syndrome, left upper limb (principal); M65.312 Trigger thumb, left thumb
CPT/HCPCS: 99024

== ENCOUNTER → 2023-09-29 12:00 | Outpatient (BNVA) | payer OTHER, SELFPAY | PROVIDERS: PCP Internal Medicine Geriatric Medicine; Visit Provider Orthopaedic Surgery ==

== ENCOUNTER 2023-10-06 10:17 | Outpatient (REF) | payer OTHER, SELFPAY ==
[2023-10-06 11:36] LABS: MANUAL DIFF FLAG NO
[2023-10-06 11:52] LABS: Basophils Absolute Auto 0.1 X10*3/uL (0.0-0.2); Eosinophils Absolute Auto 0.5 X10*3/uL (0.0-0.4); Eosinophils Percent Auto 8.9 % (0-4); Hematocrit 38.6 % (37.0-47.0); Hemoglobin 13.2 g/dl (12.0-16.0); Imm Gran Abs Auto 0.02 X10*3/uL (0.00-0.03); Imm Gran Pct Auto 0.3 % (0.0-0.4); Lymphocytes Absolute Auto 2.4 X10*3/uL (1.2-4.9); Lymphocytes Percent Auto 41.9 % (20-40); Mean Corpuscular HGB Conc 34.2 g/dl (31.0-35.0); Mean Corpuscular Hemoglobin 30.4 pg (27.0-33.0); Mean Corpuscular Volume 88.9 fL (80.0-98.0); Mean Platelet Volume 10.3 fL (9.4-12.3); Monocytes Absolute Auto 0.3 X10*3/uL (0.1-1.2); Monocytes Percent Auto 5.1 % (2-11); Neutrophils Absolute Auto 2.5 x10*3/uL (2.0-8.3); Neutrophils Percent Auto 42.8 % (45-73); Platelet Count 278 X10*3/uL (160-400); Red Blood Count 4.34 X10*6/uL (4.20-5.50); Red Cell Distribution Width 13.9 % (11.0-16.0); White Blood Count 5.8 X10*3/uL (4.8-10.8)
[2023-10-06 14:55] LABS: Alanine Aminotransferase 222 U/L (0-31); Albumin Level 4.7 g/dL (3.5-5.0); Alkaline Phosphatase 180 U/L (39-117); Anion Gap 13 (12-20); Aspartate Amino Transferase 93 U/L (5-31); Bilirubin Total 0.2 mg/dL (0.0-1.0); Blood Urea Nitrogen 18 mg/dL (9-16); Calcium 10.3 mg/dL (8.4-10.2); Carbon Dioxide 26 mmol/L (22-29); Chloride 106 mmol/L (96-108); Estimated Glomerular Filt Rate > 60; Glucose Random 143 mg/dL (60-115); Potassium 3.9 mmol/L (3.3-5.1); Sodium 141 mmol/L (135-145); Total Protein 8.2 g/dL (6.5-8.0)
== END 2023-10-06 10:18 | disposition home or self-care (01) ==
LOC: HO.HHCL 10:17
PROVIDERS: Visit Provider Internal Medicine Geriatric Medicine
DX: R12 Heartburn (principal)
CPT/HCPCS: 36415; 80053; 85025

== ENCOUNTER 2023-10-07 08:38 | Outpatient (REF) | payer OTHER, SELFPAY ==
[2023-10-07 12:44] LABS: HBS Num1 2.76 mIU/mL (0-7.99); HBsAGNum1 0.28 S/CO (0.00-0.99); Hepatitis B Surface Antigen Negative (Negative); ~HepC Num1 0.14 S/CO (0.00-0.79); ~Hepatitis B Surface Antibody NONREACTIVE (Nonreactive); ~Hepatitis C Antibody Nonreactive (Nonreactive)
[2023-10-07 12:50] LABS: Hepatitis A Antibody IgG REACTIVE (Nonreactive); Hepatitis A Antibody IgM 0.16 Index (0-0.79); ~Hepatitis A Antibody IgG 11.49 S/CO (0.00-0.99); ~Hepatitis A Antibody IgM Nonreactive (Nonreactive)
== END 2023-10-07 08:39 | disposition home or self-care (01) ==
LOC: HO.HHCL 08:38
PROVIDERS: Visit Provider Internal Medicine Geriatric Medicine
DX: R12 Heartburn (principal); R74.01 Elevation of levels of liver transaminase levels
CPT/HCPCS: 36415; 86706; 86708; 86709; 86803; 87338; 87340

== ENCOUNTER 2023-10-13 10:00 | Outpatient (REF) | payer OTHER, MEDICAID, SELFPAY ==
--- NOTE | ~2023-10-13 | US_ITS ---
EXAMINATION: US ABDOMEN COMPLETE CLINICAL INFORMATION: Epigastric pain, transaminitis. COMPARISON: None available. TECHNIQUE: Real-time imaging of the abdominal viscera. FINDINGS: PANCREAS: The head and body appear normal. The tail is obscured by bowel gas. ABDOMINAL AORTA: The proximal segment is obscured by bowel gas. The mid and distal segments are normal in caliber. INFERIOR VENA CAVA: Visualized portions are normal. LIVER: The liver is normal in size. The liver contour is normal. There is diffuse increased liver parenchymal echogenicity, consistent with infiltrative hepatocellular disease. No focal hepatic lesion. There is no intrahepatic biliary duct dilatation seen. GALLBLADDER: Normal. The gallbladder is physiologically distended without evidence of stones, sludge, polyps, wall thickening or pericholecystic fluid. COMMON BILE DUCT: Normal in caliber measuring 0.3 cm in diameter. RIGHT KIDNEY: Normal. No hydronephrosis. No renal calculi or focal parenchymal lesions. The kidney measures 10.0 cm in maximum dimension. LEFT KIDNEY: Indeterminate hypoechoic lesion in the upper pole may represent a solid lesion or complex cyst. This is not optimally visualized. No hydronephrosis or renal calculi. The kidney measures 9.5 cm in maximum dimension. SPLEEN: Normal. The spleen measures 8.6 cm in maximum dimension. FREE FLUID: None. US/US abdomen complete IMPRESSION: Echogenic liver consistent with chronic hepatocellular disease. Correlate clinically. No biliary ductal dilatation. Suboptimal imaging of a 3.0 cm hypoechoic lesion upper pole left kidney which could represent a solid renal mass or a complex cyst. Recommend further evaluation with CT/MRI abdomen without and with contrast renal mass protocol. Electronically signed by: Manuel Willams MD 10/27/2023 02:24 PM EDT
== END 2023-10-13 10:01 | disposition home or self-care (01) ==
LOC: HO.US 10:00
PROVIDERS: PCP Internal Medicine Geriatric Medicine; Visit Provider Internal Medicine Geriatric Medicine
DX: R74.01 Elevation of levels of liver transaminase levels (principal)
CPT/HCPCS: 76700

== ENCOUNTER 2023-10-21 09:55 | Outpatient (REF) | payer OTHER, MEDICAID, SELFPAY ==
[2023-10-21 11:56] LABS: Alanine Aminotransferase 124 U/L (0-31); Albumin Level 4.7 g/dL (3.5-5.0); Alkaline Phosphatase 109 U/L (39-117); Anion Gap 12 (12-20); Aspartate Amino Transferase 71 U/L (5-31); Bilirubin Total 0.3 mg/dL (0.0-1.0); Blood Urea Nitrogen 15 mg/dL (9-16); Calcium 10.3 mg/dL (8.4-10.2); Carbon Dioxide 27 mmol/L (22-29); Chloride 105 mmol/L (96-108); Estimated Glomerular Filt Rate > 60; Glucose Random 113 mg/dL (60-115); Potassium 4.1 mmol/L (3.3-5.1); Sodium 140 mmol/L (135-145); Total Protein 8.1 g/dL (6.5-8.0)
== END 2023-10-21 09:56 | disposition home or self-care (01) ==
LOC: HO.HHCL 09:55
PROVIDERS: Visit Provider Internal Medicine Geriatric Medicine
DX: Z13.89 Encounter for screening for other disorder (principal)
CPT/HCPCS: 36415; 80053

== ENCOUNTER 2023-10-29 10:02 | Outpatient (REF) | payer OTHER, SELFPAY ==
[2023-10-29 12:26] LABS: Alanine Aminotransferase 114 U/L (0-31); Albumin Level 4.5 g/dL (3.5-5.0); Alkaline Phosphatase 95 U/L (39-117); Anion Gap 13 (12-20); Aspartate Amino Transferase 92 U/L (5-31); Bilirubin Direct 0.1 mg/dL (0.0-0.5); Bilirubin Total 0.3 mg/dL (0.0-1.0); Blood Urea Nitrogen 14 mg/dL (9-16); Calcium 10.3 mg/dL (8.4-10.2); Carbon Dioxide 26 mmol/L (22-29); Chloride 108 mmol/L (96-108); Estimated Glomerular Filt Rate > 60; Glucose Random 104 mg/dL (60-115); Potassium 4.2 mmol/L (3.3-5.1); Sodium 143 mmol/L (135-145); Total Protein 7.5 g/dL (6.5-8.0)
== END 2023-10-29 10:03 | disposition home or self-care (01) ==
LOC: HO.HHCL 10:02
PROVIDERS: Visit Provider Internal Medicine Geriatric Medicine
DX: R74.01 Elevation of levels of liver transaminase levels (principal)
CPT/HCPCS: 36415; 80053; 82248

== ENCOUNTER 2023-11-17 09:06 | Day surgery (SDC) | payer OTHER, MEDICAID, SELFPAY ==
--- NOTE | 2023-11-15 15:01 | P.CONAN_ITS ---
Documented by User: Mabel Villagran NP 11/15/23 15:02 HPI - Anesthesia Eval Consult details Narrative: 53yo F for Colonoscopy PMFSH Active Problems Active Problems: All Active Problems Trigger thumb, left thumb (Acute) De Quervain's tenosynovitis, right (Acute) Encounter for screening colonoscopy (Acute) Carpal tunnel syndrome of left wrist (Acute) Trigger finger, right ring finger (Acute) Trigger finger of right thumb (Acute) Trigger finger, left middle finger (Acute) Trigger finger, right middle finger (Acute) Numbness and tingling in both hands (Acute) Carpal tunnel syndrome of right wrist (Acute) Past Medical History Medical History (System 11/02/23 @ 12:46 by Lorena Serrato) Menopausal hot flushes Seasonal allergies Family History Family History (System 11/02/23 @ 12:46 by Lorena Serrato) Mother Diabetes Renal failure Father Asthma Surgical History Surgical History Hx of hand surgery Hx of bilateral oophorectomy Hx of ovarian cystectomy Social History Social History (System 11/02/23 @ 12:46 by Lorena Serrato) Household Members Other:: Are you a primary congregational care pastor to a significant other at home: No Do you presently have visiting nurse or other home services: No Comment: counts correct Patient Tobacco Use Status: Never used Tobacco Use of substances other than those prescribed or required for medical reasons: No Have you been hit, kicked, punched, or otherwise hurt by someone within the past year? 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[employer] Meds Allergies Allergy/AdvReac Type Severity Reaction Status Date / Time No Known Allergies Allergy Verified 11/02/23 12:46 Home Medications ?Medication ?Instructions ?Recorded ?Confirmed ?Last Taken ?Type cetirizine 5 mg tablet 5 mg PO DAILY PRN Allergy Symptoms 12/11/20 09/13/23 Unknown History venlafaxine 25 mg tablet 25 mg PO DAILY 12/11/20 09/13/23 Unknown History Assessment and Plan Assessment Anesthesia Assessment: Chart Reviewed Documented by User: Natan Lorenzo MD 11/17/23 12:08 PMFSH Past Medical History Medical History (System 11/02/23 @ 12:46 by Lorena Serrato) Menopausal hot flushes Seasonal allergies Family History Family History (System 11/02/23 @ 12:46 by Lorena Serrato) Mother Diabetes Renal failure Father Asthma Family history of problems with anesthesia: No Surgical History Surgical History Hx of hand surgery Hx of bilateral oophorectomy Hx of ovarian cystectomy History of Problems with Anesthesia: No Social History Social History (System 11/02/23 @ 12:46 by Lorena Serrato) Household Members Other:: Are you a primary congregational care pastor to a significant other at home: No Do you presently have visiting nurse or other home services: No Comment: counts correct Patient Tobacco Use Status: Never used Tobacco Use of substances other than those prescribed or required for medical reasons: No Have you been hit, kicked, punched, or otherwise hurt by someone within the past year? 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[employer] Allergies Allergy/AdvReac Type Severity Reaction Status Date / Time No Known Allergies Allergy Verified 11/02/23 12:46 Home Medications ?Medication ?Instructions ?Recorded ?Confirmed ?Last Taken ?Type cetirizine 5 mg tablet 5 mg PO DAILY PRN Allergy Symptoms 12/11/20 09/13/23 Unknown History venlafaxine 25 mg tablet 25 mg PO DAILY 12/11/20 09/13/23 Unknown History Exam Airway Mallampati Class: II TM Dist: <=3cm Neck ROM: Full Loose/Missing/Broken Teeth: No Heart: ok Lungs: ok Assessment and Plan Assessment Anesthesia Assessment: Anesthesia Plan Discussed Final Anesthetic Review Family History of Problems with Anesthesia: No History of Problems with Anesthesia: No NPO: Yes ASA Class: I Final Preanesthetic Review: No Changes in Pt Med Stat, Meds/Allgs Chart Reviewed, Consent Obtained/Reviewed and Anes Risks/Benef Reviewed Patient Risk: Low Procedure Risk: Low Anesthetic Plan Anesthetic Plan: MAC: and Agree w/ Assess. and Plan Disposition: Standard PACU
[2023-11-17 10:44] VITALS: BMI 27.6
--- NOTE | 2023-11-17 10:52 | MHC.SHP ---
Pre-Procedural Eval Section A - 24 Hr Update-Section A only Date of Service: 11/17/23 Section B - Complete if H&P > 30 days Chief Complaint: screening Relevant Family History (Specify if Yes): No Relevant Social History: None Present Medications: see Short Stay Collaborative assessment Medical History: Significant History (Menopausal hot flushes Seasonal allergies) History of Previous Operations: Relevant previous surgery/procedure and date(s) (Hx of hand surgery Hx of bilateral oophorectomy Hx of ovarian cystectomy) Allergies: Allergies Allergy/AdvReac Type Severity Reaction Status Date / Time No Known Allergies Allergy Verified 11/02/23 12:46 Review of Systems Sugical H&P ROS: Negative: Constitution, Cardiovascular, Respiratory, Neurological, Psychiatric, Hem-Onc, Allergic/Immunologic, Gastrointestinal, Genitourinary, Musculoskeletal, Integumentary, Endocrine and Eyes/Ears/Nose/Throat Exam Surgical H&P Exam: Normal: HEENT, Normal: Heart, Normal: Lungs, Normal: Extremities, Normal: Abdomen, Normal: Skin and Normal: Neurological Plan Diagnosis/Plan: Unchanged I have reviewed the history and physical and performed a pertinent physical examination on my patient. No changes have occurred unless specified. Time Spent With Patient Time: Total time managing care of this patient today ____ minutes.
[2023-11-17 11:13] VITALS: BP 145/73; PULSE 89; RESP 16; TEMP 36.9; O2SAT 98
[2023-11-17] MEDS: Lactated Ringers 1,000 ML 100 ML IVCONT (11:21)
--- NOTE | 2023-11-17 12:30 | HO.OPN-COLON ---
Colonoscopy Operative Note Operative Note Date of Service: 11/17/23 Narrative: Operative Information Procedure Description: Colonoscopy Indication: screening Anesthesia: MAC COLONOSCOPY Instrument: Olympus variable stiffness ADULT scope 190L Colonoscopy Monitoring: Vital signs and clinical assessment, continuous EKG monitoring, Pulse oximetry, Carbon Dioxide monitoring and blood pressure monitoring were done throughout the procedure. Colon withdrawal time was 7 minutes. Procedure: The patient was placed in the left lateral decubitis position and pre-procedure medications were administered. After a digital rectal examination of the ano-rectum, the video colonoscope was inserted into the rectum and advanced through the colon to the cecum/TI. The colonoscope was slowly withdrawn in a retrograde panoramic fashion and the colon mucosa was carefully examined including a retroflexed view of the rectum. Findings and interventions are described below. Procedure Difficulty: easy Findings: Melanosis coli throughout the colon otherwise normal Terminal Ileum-normal Cecum:normal Right sided retroflexion- normal Ascending Colon: normal Transverse Colon -normal Descending Colon:normal Sigmoid Colon: normal Rectum: Retroflexion with small internal hemorrhoids seen, grade I Anorectum - normal Intervention: none Colon preparation: [place] Bowel Preparation Scale Right colon; 2 Transverse colon: 2 Left colon; 2 (0 = Unprepared colon segment with mucosa not seen due to solid stool that cannot be cleared. 1 = Portion of mucosa of the colon segment seen, but other areas of the colon segment not well seen due to staining, residual stool and/or opaque liquid. 2 = Minor amount of residual staining, small fragments of stool and/or opaque liquid, but mucosa of colon segment seen well. 3 = Entire mucosa of colon segment seen well with no residual staining, small fragments of stool or opaque liquid) Impression and Post Procedure Diagnosis: melanosis coli internal hemorrhoids Plan: High fiber diet leaflet Avoid straining at stool, epsom salts and sitz bath, anusol supps or cream Repeat Colonoscopy in 10 years or earlier if clinically indicated Above findings were reviewed with the patient and relevant handouts were provided if indicated.
[2023-11-17 12:35] VITALS: BP 89/60; PULSE 98; RESP 16; TEMP 36.6; O2SAT 97
[2023-11-17 12:40] VITALS: BP 101/64; PULSE 88; RESP 16; O2SAT 98
[2023-11-17 12:50] VITALS: BP 126/72; PULSE 84; RESP 17; TEMP 36.8; O2SAT 99
== END 2023-11-17 13:35 | disposition home or self-care (01) ==
PROVIDERS: PCP Internal Medicine Geriatric Medicine; Visit Provider Internal Medicine Gastroenterology
PROC: 0DJD8ZZ Inspection of Lower Intestinal Tract, Via Natural or Artificial Opening Endoscopic (ICD-10-PCS; CPT 45378; principal; 2023-11-17 11:30)
DX: Z12.11 Encounter for screening for malignant neoplasm of colon (principal); K63.89 Other specified diseases of intestine; K64.0 First degree hemorrhoids; J30.2 Other seasonal allergic rhinitis; N95.1 Menopausal and female climacteric states; R23.2 Flushing; Z79.899 Other long term (current) drug therapy; Z98.890 Other specified postprocedural states
CPT/HCPCS: 45378; J2003; J2704

== ENCOUNTER → 2023-11-17 09:06 | Outpatient (BNV) | payer OTHER, MEDICAID, SELFPAY | PROVIDERS: PCP Internal Medicine Geriatric Medicine; Visit Provider Internal Medicine Gastroenterology | DX: Z12.11 Encounter for screening for malignant neoplasm of colon (principal); K64.0 First degree hemorrhoids; K63.89 Other specified diseases of intestine | CPT/HCPCS: 45378 ==

== ENCOUNTER 2023-11-23 14:57 | Outpatient (REF) | payer OTHER, SELFPAY ==
--- NOTE | ~2023-11-23 | CT_ITS ---
EXAMINATION: CT ABDOMEN AND PELVIS WITHOUT AND WITH CONTRAST CLINICAL INFORMATION: Follow-up left renal upper pole 3.0 cm lesion. COMPARISON: Abdominal ultrasound dated 10/05/2023. TECHNIQUE: Multidetector volumetric imaging was performed of the abdomen and pelvis before and after the IV administration of mL of Omnipaque 300 intravenous contrast. Sagittal and coronal reformatted images were obtained on the technologist's workstation. This CT examination was performed using dose optimization techniques as appropriate, variously including the following: *Automated exposure control *Adjustment of mA and/or kV according to patient size (this includes techniques or standardized protocols for targeted exams where dose is matched to indication/reason for exam; i.e. extremities or head) *Use of iterative reconstruction technique DLP: 378 mGy-cm FINDINGS: LUNG BASES: There is mild bibasilar dependent hypoaeration. LIVER, GALLBLADDER, AND BILIARY TREE: The liver is normal in size, shape and generally diminished in attenuation. No focal hepatic lesion or biliary ductal dilatation is present. The gallbladder is unremarkable with no evidence of radiopaque gallstones, gallbladder wall thickening, or obvious pericholecystic inflammatory changes. PANCREAS: Unremarkable SPLEEN: Unremarkable ADRENAL GLANDS: Unremarkable KIDNEYS AND URETERS: The kidneys are normal in size, shape, and attenuation. No hydronephrosis, hydroureter, or calculi seen. No perinephric stranding. GASTROINTESTINAL TRACT: The small and large bowel are unremarkable. At the base of the appendix, a 4 mm appendicolith is noted. There is no appendiceal thickening or adjacent fat stranding to suggest acute appendicitis. ABDOMINAL WALL: No significant hernia is appreciated. LYMPH NODES: Normal VASCULAR: Unremarkable OSSEOUS STRUCTURES: Unremarkable CT/CT abdomen wo/w IV con IMPRESSION: 1. There is no focal left renal lesion noted on CT to correspond with the lesion noted on the recent abdominal ultrasound examination. No urinary mass, calculus or obstructive uropathy is seen. 2. A 4 mm appendicolith is noted at the base of the appendix, without finding to suggest acute appendicitis. Fleischner guidelines were followed. Electronically signed by: Herberth Perez MD 01/09/2024 10:59 PM [facility]
[2023-11-23] MEDS: iohexoL 350 MG/ML 100 ML INFUS..BTL IV (16:37)
== END 2023-11-23 14:58 | disposition home or self-care (01) ==
LOC: HO.CT 14:57
PROVIDERS: PCP Internal Medicine Geriatric Medicine; Visit Provider Internal Medicine Geriatric Medicine
DX: N28.1 Cyst of kidney, acquired (principal)
CPT/HCPCS: 74170; Q9967

== ENCOUNTER 2024-01-07 09:57 | Outpatient (REF) | payer OTHER, SELFPAY ==
[2024-01-07 12:22] LABS: Alanine Aminotransferase 44 U/L (0-31); Albumin Level 4.6 g/dL (3.5-5.0); Alkaline Phosphatase 96 U/L (39-117); Anion Gap 11 (12-20); Aspartate Amino Transferase 32 U/L (5-31); Bilirubin Total 0.4 mg/dL (0.0-1.0); Blood Urea Nitrogen 12 mg/dL (9-16); Carbon Dioxide 28 mmol/L (22-29); Chloride 105 mmol/L (96-108); Estimated Glomerular Filt Rate > 60; Glucose Random 93 mg/dL (60-115); Potassium 4.1 mmol/L (3.3-5.1); Sodium 140 mmol/L (135-145); Total Protein 7.7 g/dL (6.5-8.0)
== END 2024-01-07 09:58 | disposition home or self-care (01) ==
LOC: HO.HHCL 09:57
PROVIDERS: Visit Provider Internal Medicine Geriatric Medicine
DX: K75.81 Nonalcoholic steatohepatitis (NASH) (principal); Z86.19 Personal history of other infectious and parasitic diseases
CPT/HCPCS: 36415; 80053; 87338

== ENCOUNTER 2024-05-29 10:09 | Outpatient (REF) | payer OTHER, SELFPAY ==
--- OUTSIDE RECORDS SUMMARY | 2024-05-29 11:30 | XMS_ITS | Encounter Summary ---
Author Organization [facility] Address [address] [place] [address] Care Team Providers Care Senior Sales Operations Manager Name Role Phone Pavel Chang Primary Care Provider + Reason for Visit * Reason Onset Date Comments call back request 05/01/2021 Encounter Details Date Type Department Care Team (Late st Contact Info) Description 05/01/2021 Telephone [facility] [address] [place] [id number] Telephone Intake, Staff call back request Social History Tobacco Use Types Packs/Day Years Used Date Smoking Tobacco: Never Smokeless Tobacco: Never Alcohol Use Standard Drinks/Week Comments Never 0 (1 standard drink = 0.6 oz pur e alcohol) Comments No Sex and Gender Information Value Date Recorded Sex Assigned at Not on file Legal Sex Female 11:52 AM EST Gender Identity Not on file Sexual Orientation Not on file 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 -Pt aware that both Rx sent to [facility] pharmacy No further questions. * Telephone Encounter - Ana Luisa oPtts NP - 05/01/2021 2:44 PM EDT Per note and letter from 04/2021: Please let patient know: 1. Vitamin D: Prescribed 4,000 international unit(s) of vitamin D for vitamin D deficiency 2. Calcium: I think there was a problem with the calcium carbonate prescription, so resent to [facility], 1 tablet of calcium carbonate per day and she should also have dietary calcium, ie 1 cup of milkper day. I asked the office to call her and make a 6 month appointment which is scheduled Future Appointments Date Time Provider Department Center 10/29/2021 11:30 AM Ana Luisa Potts NP [facility] 04/29/2022 11:30 AM Ana Luisa Potts NP [facility] * Telephone Encounter - Joselin Londono - 05/01/2021 10:50 AM EDT Pt calling with [employer], asking for a cb to go over her medications. She is questioning what medications she is supposed to be taking. pls call the pt at [phone] documented in this encounter Plan of Treatment Not on file documented as of this encounter Visit Diagnoses Diagnosis Menopause- Primary Symptomatic menopausal or female climacteric states documented in this encounter Care Teams Senior Sales Operations Manager Relationship Specialty Start Date End Date Pavel Chang [address] [place] [id number] PCP - General Internal Medicine 02/02/19 documented as of this encounter
--- OUTSIDE RECORDS SUMMARY | 2024-05-29 11:30 | XMS_ITS | Clinical Summary ---
Author Organization [employer] Address [address] [place] [address] Care Team Providers Care Car Repair Supervisor Name Role Phone Name, Carlyle ARMENTA Primary Care Provider [phone] Allergies No known active allergies Medications fluticasone (Flonase) 50 MCG/ACT nasal spray Administer 1 spray into each nostril in the morning. 16 g 11 06/11/19 23 Active PARoxetine (Paxil) 10 MG tablet Take 1 tablet (10 mg) by mouth in the morning. 30 tablet 11 12/31/19 23 Active acetaminophen (Tylenol) 500 MG tabletIndicati ons:Necrosis of dental pulp Take 1 tablet (500 mg) by mouth every 6 (six) hours if needed for mild pain for up to 20 doses. 20 tablet 01/14/20 23 Active Blood Pressure kit For home use once a day 1 kit 10/06/19 24 Active cholecalcifero l (Vitamin D-3) 10 MCG (400 UNIT) tablet Take 1 tablet (10 mcg) by mouth in the morning. 30 tablet 11 01/05/20 24 025 Active cetirizine (ZyrTEC) 10 MG tablet TAKE 1 TABLET BY MOUTH EVERY DAY IN THE MORNING 90 tablet 3 01/27/20 24 Active famotidine (Pepcid) 20 MG tablet TAKE 1 TABLET BY MOUTH TWICE DAILY 180 tablet 05/11/19 25 Active famotidine (Pepcid) 20 MG tablet TAKE 1 TABLET BY MOUTH TWICE DAILY 180 tablet 02/10/20 24 025 Discontinued(Re order (will not trigger notification to Pharmacy)) Active Problems Problem Noted Date Diagnosed Date Trigger finger of right thumb 10/05/2023 Numbness and tingling in both hands 10/05/2023 Encounter for screening colonoscopy 10/05/2023 Overview (01/05/2024): No GI complaints De Quervain's tenosynovitis, right 10/05/2023 Trigger finger of all digits of both hands 10/04 Carpal tunnel syndrome of left wrist 04/27/2022 Menopausal and female climacteric states 023 Primary insomnia 04/27/2022 Hyperparathyroidism 11/20/2020 Migraine 11/20/2020 Hypercalcemia 11/20/2020 Menopause 11/20/2020 Vitamin D deficiency 11/20/2020 Allergic rhinitis 12/04/2015 Encounters Date Type Department Care Team Description 05/26/2024 Orders Only [facility] [address] [place], [place] [phone] Provider, MD Masha 05/09/2024 Refill [facility] [address] [place], [place] [phone] Name, MD Carlyle 05/09/2024 Telephone [facility] [address] [place], [place] [phone] [place] appt change 04/17/2024 Travel from Last 3 Months Immunizations Name Administration Dates Next Due Hep B, adult 01/05/2024,06/23/2023 Influenza injectable quadriv alent IIV4 with preservative 11/29/2018,12/04/2015 Influenza injectable quadriv alent preservative free 12/30/2022,11/13/2020,11/13/2020,2017,12/17/2016 Influenza, seasonal, injecta ble, preservative free 01/05/2024 Moderna Covid-19 Vaccine 12+ 06/30/2021, 01/15/2021,06/08/2020,2020 TD (adult), 2 Lf tetanus tox oid, preservative free, adsorbed 07/01/2017 Tdap 11/29/2018 Zoster, Recombinant 07/08/2022,04/27/2022 Social History Tobacco Use Types Packs/Day Years Used Date Smoking Tobacco: Never Smokeless Tobacco: Never Tobacco Cessation:Counseling Given: Not Answered Alcohol Use Standard Drinks/Week Comments Never 0 (1 standard drink = 0.6 oz pur e alcohol) Depression Answer Date Recorded Patient Health Questionnaire-9 Score 4 06/23/2023 Patient Health Questionnaire-9 Score 4 06/23/2023 Last PHQ-9: Questionnaire Data Not on file 0 06/23/2023 Housing Stability Answer Date Recorded What is your housing situation today? I have eliecer saeed 06/15/[address] you li ve. Do you have problems with any of the following? None of the above 06/15/2023 Food Insecurity Answer Date Recorded Within the past 12 months, y ou worried that your food would run out before you got money to buy more: Sometimes True 2023 Within the past 12 months,th e food you bought just didn't last and you didn't have enough money to get more: Sometimes True 06/15/2023 Transportation Answer Date Recorded In the past 12 months, has l ack of transportation kept you from medical appts, meetings, work or from getting things needed for daily living? No 06/15/2023 Utilities Answer Date Recorded In the past 12 months, has t he electric, gas, oil or water company threatened to shut off services in your home? No 06/15/2023 Depression Answer Date Recorded Patient Health Questionnaire-2 Score 2 06/23/2023 Comments No Sex and Gender Information Value Date Recorded Sex Assigned at Female 04/27/2022 11:37 AM EDT Legal Sex Female 2:59 PM EST Gender Identity Female 04/27/2022 11:37 AM EDT Sexual Orientation Choose not to disclose 2022 11:37 AM EDT Last Filed Vital Signs Vital Sign Reading Time Taken Comments Blood Pressure 136/82 01/05/2024 10:41 AM EST Pulse 76 01/05/2024 10:41 AM EST Temperature 36.3 ??C (97.3 ??F) 01/05/2024 10:[address] Respiratory Rate 21 01/05/2024 10:41 AM EST Oxygen Saturation 99% 01/05/2024 10:41 AM EST Inhaled Oxygen Concentration - - Weight 65 kg (143 lb 3.2 oz) 01/05/2024 10:41 AM EST Height 147.3 cm (4' 10 ) 01/05/2024 10:41 AM EST Body Mass Index 29.93 01/05/2024 10:41 AM EST Plan of Treatment Upcoming Encounters Date Type Department Care Team (Late st Contact Info) Description 06/21/2024 10:00 AM EDT Office Visit [facility] [address] [place] [phone] Suzy Bourne, CHARLI [address] [place], [place] [phone] 08/17/2024 10:30 AM EDT Office Visit [facility] [address] [place] [address] [phone] Name, MD Carlyle [address] [place] [phone] Health Maintenance Due Date Last Done Comments CT Colonography 1970 FIT DNA/Cologuard 1970 FIT 1970 FOBT 1970 Sigmoidoscopy 1970 Hepatitis A Vaccines (1 of 2 - Risk 2-dose series) 1988 Dental X-Ray: Full Mouth 03/05/2019 03/04/2016 Pneumococcal Vaccine: 50+ Years (1 of 1 - PCV) 05/12/2019 Dental Oral Exam 06/24/2022 12/24/2021, 02/2020, 12/07/2018, Additional history exists Dental Prophylaxis 06/24/2022 12/24/2021, 1 03/18/2020, 12/07/2018, Additional history exists COVID-19 Vaccine (2023- season) 2023 06/30/2021, 01/15/2021, 06/08/2020, Additional history exists Dental X-Ray: Bitewings 01/15/2024 01/14/20 23, 12/24/2021, 06/03/2021, Additional history exists Hepatitis B Vaccines (3 of 3 - 19+ 3-dose series) 03/01/2024 01/05/2024, 06/23/2023 SDOH Screening 06/14/2024 06/15/2023 Depression Screening 06/22/2024 06/23/2023, 06/23/19 Alcohol/Substance Use Screening 10/05/2024 10/06/2023 Tobacco Screening 01/04/2025 01/05/2024 Mammogram 05/25/2025 05/26/2023, 04/0 06/2022, 05/07/2021, Additional history exists Cervical Cancer Screening 06/15/2026 HPV/Cotest 06/15/2026 06/16/2023, 06/16, 01/11/2019 Pap Smear 06/15/2026 06/16/2023, 07/10/2020 DTaP/Tdap/Td Vaccines (2 - Td or Tdap) 11/29/2028 11/29/2018, 07/01/2017 Colonoscopy 11/16/2033 11/17/2023 Colorectal Cancer Screening 11/16/2033 RSV Patients and Patients Aged 60 years or older (1 - 1-dose 75+ series) 2044 HIV Screening Completed 07/10/2020 Zoster Vaccines Completed 07/08/2022, 04/27/2022 Hepatitis C Screening Completed 10/07/2023, 019 Influenza Vaccine Completed 01/05/2024, , 11/13/2020, Additional history exists HIB Vaccines Aged Out No longer eligi ble based on patient's age to complete this topic HPV Vaccines Aged Out No longer eligi ble based on patient's age to complete this topic IPV Vaccines Aged Out No longer eligi ble based on patient's age to complete this topic Meningococcal Vaccine Aged Out No angela gita eligible based on patient's age to complete this topic RSV under 20 months Aged Out No longe r eligible based on patient's age to complete this topic Rotavirus Vaccines Aged Out No longer eligible based on patient's age to complete this topic Procedures Procedure Name Priority Date/Time Associated Diagnosis Comments CYTOLOGY, NON-WOOD GANG SAWYER Routine 04/19/2024 11: 19 AM EST HM COLONOSCOPY Routine 11/17/2023 HEPATITIS C AB W/REFL TO HCV RNA, QN, PCR Routine 10/07/2023 8:45 AM EDT Transaminitis HPV MRNA E6/E7 REFLEX TO HPV 16, 18/45 Routine 06/16/2023 11:11 AM EDT PAP SMEAR Routine 06/16/2023 11:11 AM EDT Cervical cancer screening BI MAMMOGRAM SCREENING TOMOSYNTHESIS BILATERAL Routine 05/26/2023 9:32 AM EDT BITEWING - SINGLE RADIOGRAPHIC IMAGE Routine 01/13/2023 11:30 AM EST Necrosis of dental pulp PROPHYLAXIS - ADULT Routine 12/24/2021 1 2:00 AM EST PERIODIC ORAL EVALUATION - ESTABLISHED PATIENT Routine 12/24/2021 12:00 AM EST HIV 1/2 ANTIGEN/ANTIBODY, FOURTH GENERATION W/RFL Routine 07/10/2020 10:08 AM EDT INTRAORAL - COMPLETE SERIES OF RADIOGRAPHIC IMAGES Routine 03/04/2016 12:00 AM EST from Last 3 Months or Most Recently Relevant to Health Maintenance Results * Cytology, Non-WOOD GANG SAWYER (04/19/2024 11:19 AM EST) [facility] Provider LAB CYTOLOGY ORDERABLES E dited Result - Final * Hm Colonoscopy (11/17/2023) Colonoscopy Normal Normal 11/17/2023 us Carlyle Amaya MD HEALTH MAINTENANCE Final Result * Hepatitis C Antibody with Reflex to HCV, RNA, Quantitative, Real-Time PCR (10/07/2023 8:45 AM EDT) Hepatitis C Antibody Nonreactive Nonreactive [facility] Comment:Antibodies to HCV no t detected; does not exclude early acuteHCV infection. Blood Venous blood specimen / Unknown 10/07/2023 8:45 AM EDT 10/07/2023 11:45 AM EDT us Carlyle Amaya MD LAB BLOOD ORDERABLES Final Resul t [facility] [address] [place] [address] [phone] * HPV mRNA E6/E7 w/Reflex to HPV Genotypes 16, 18/45 (06/16/2023 11:11 AM EDT) HPV nRNA E6/E7 Not Detected Not Detected [facility] Comment:Methodology: Transcr iption-Mediated AmplificationThis assay detects E6/E7 viral messenger RNA (mRNA) from 14high-risk HPV types (16,18,31,33,35,39,45,51,52,56,58,59,66,68).Cervical sources are required for HPV testing.If a vaginal source from a patient who has had atotal hysterectomy with removal of cervix wassubmitted, please contact the testing laboratoryfor alternative testing options.For additional information, please refer tohttp://education.[employer]/faq/XFR359n3(This link if provided for information/educational purposes only.)THIS TEST WAS PERFORMED AT:[facility] [place] [id number] BLOOD MD HPV mRNA E6/E7 [facility] HPV 16 RNA [facility] HPV 18/45 RNA [facility] 06/16/2023 11:1 1 AM EDT 06/21/2023 8:00 AM EDT Suzy HALL LAB CYTOLOGY ORDERABLES F inal Result [facility] [address] [place] [address] [phone] * Pap Smear (06/16/2023 11:11 AM EDT) Swab Vaginal structure / Unknown 06/16/2023 11:11 AM EDT 06/21/2023 8:00 AM EDT Narrative [facility] - 07/13/2023 3:52 PM EDT ----- ------- Name: ChristianRizwanaMini Ree ? Age/Sex: 53/F ? : 1970 Unit#: [id number] ?? Attend Dr: SUZY BOURNE CNM ?Re06/22/23 ?Status: DEP REF ? Location: HO.HHCLNP ? Disch: ? ----- ------- SPEC : [id number] ? RECD: 06/21/23 ? STATUS: ??SOUT ? REQ NUM: [id number] ? MAURICE: 06/16/23-1111 ? SUBM DR: SUZY BOURNE CNM ? ENTERED: ??06/21/23-905 ?SP TYPE: Pap Smr ?OTHR : ? ORDERED: ??Pap Smear ? Interpretation ?? Satisfactory for evaluation. ?? Negative for intraepithelial lesion or malignancy. ?HPV mRNA E6/E7: ?NOT DETECTED ? This assay detects E6/E7 viral messenger RNA (mRNA) from 14 high-risk HPV types (16, 18, ?? 31, 33, 35, 39, 45, 51, 52, 56, 58, 59, 66, 68) ?? HPV testing performed by [facility], [place], [place]. ??See reference laboratory ?? portion of the EMR for entire report. ?Clinical Information LMP: Postmenopausal Previous PAP test: 06/2020, NIL/HPV- Other surgery: Hysterectomy, 03/2019 negative colposcopy Other history:12/2018, ASCUS HPV+ ? Material Received ?? ThinPrep-Vaginal ----- ------- Signed (signature on file) SYDNEE Galdamez (ASCP) 07/13/23 8283 ? ----- ------- ? END OF REPORT ? us Suzy Antoinenikokarl CNM LAB CYTOLOGY ORDERABLES F inal Result [facility] [address] [place] [address] [phone] * BI Mammogram Screening Tomosynthesis Bilateral (05/26/2023 9:32 AM EDT) Anatomical Region Laterality Modality Breast Bilateral Mammography 05/26/2023 9:32 AM EDT Narrative 05/31/2023 6:38 AM EDT ? [facility] ? [address] ?[place] [phone] ? Mammography Report ? Signed ? Patient: Mini Barkley ?MR# ?? : [id number] ? : 1970 ?Acct:[id number] ? Age/Sex: 53 / F ?ADM Date: 04/10/24 ? Loc: HO.MAMMO ? Attending Dr: Carlyle Name MD ? Ordering Physician: Name,Carlyle MD ?Results: 1Negative ? Date of Service: 04//24 ?Follow Up: 1 Year From Orig ?? inal Mammogram ? Procedure(s): MM tomosynthesis screening BI ?? Accession Number(s): [id number] ? cc: Name,Carlyle ARMENTA ? EXAMINATION: ?? MM SCREENING DIGITAL BREAST TOMOSYNTHESIS, BILATERAL ? CLINICAL INFORMATION: ? Screening. Asymptomatic. ? COMPARISON: ?? Mammography: This study is compared with prior exams dating back to ?? 2018. ? TECHNIQUE: ?? Digital breast tomosynthesis is performed in both the craniocaudal and ?? mediolateral oblique views along with computer-aided detection (CAD). ?? Synthesized 2D images are generated from the tomosynthesis. ? FINDINGS: ?? There are scattered areas of fibroglandular density (ACR BI-RADS breast ?? composition Category b). ? There are no significant masses, abnormal calcifications, or other ?? abnormalities. ? MM/MM tomosynthesis screening BI ?? IMPRESSION: ?? No mammographic evidence of malignancy. ? ASSESSMENT: ? BI-RADS BI-RADS 1 - Negative ? RECOMMENDATION: ?? Routine annual mammography screening. ? 1 year F/U ? This examination should not preclude the clinical evaluation of a ?? suspicious palpable abnormality. ? This patient's information was entered into a reminder system with a ?? target due date for their next mammogram. ? Dictated By: ?Jaqui Schmitz MD ? Signed By: ?<Electronically signed by Jaqui Schmitz MD in OV> ? 05/31/23 0634 ? DD/ 0932 ? TD/TT: ? Maintainer Plant: ? Procedure Note Davion, Image - 05/31/2023 [facility] [address] [place] [address] [place] [address] Mammography Report Signed Patient: Mini Barkley CMR# : [id number] : 1970Acct:[id number] Age/Sex: 53 / FADM Date: 05/26/23 Loc: JOSE Attending Dr: Carlyle Amaya MD Ordering Physician: Carlyle Amayaults: 1Negative Date of Service: 05/26/23Follow Up: 1 Year From [facility] Mammogram Procedure(s): MM tomosynthesis screening BI Accession Number(s): [id number] cc: Name,Carlyle ARMENTA EXAMINATION: MM SCREENING DIGITAL BREAST TOMOSYNTHESIS, BILATERAL CLINICAL INFORMATION: Screening. Asymptomatic. COMPARISON: Mammography: This study is compared with prior exams dating back to 2018. TECHNIQUE: Digital breast tomosynthesis is performed in both the craniocaudal and mediolateral oblique views along with computer-aided detection (CAD). Synthesized 2D images are generated from the tomosynthesis. FINDINGS: There are scattered areas of fibroglandular density (ACR BI-RADS breast composition Category b). There are no significant masses, abnormal calcifications, or other abnormalities. MM/MM tomosynthesis screening BI IMPRESSION: No mammographic evidence of malignancy. ASSESSMENT: BI-RADS BI-RADS 1 - Negative RECOMMENDATION: Routine annual mammography screening. 1 year F/U This examination should not preclude the clinical evaluation of a suspicious palpable abnormality. This patient's information was entered into a reminder system with a target due date for their next mammogram. Dictated By: Jaqui Schmitz MD Signed By: <Electronically signed by Jaqui Schmitz MD in OV> 05/31/23 0634 DD/ 0932 TD/TT: Maintainer Plant: Carlyle Amaya MD [facility] [place] PROCEDURES Final Result * HIV 1/2 ANTIGEN/ANTIBODY,FOURTH GENERATION W/RFL (07/10/2020 10:08 AM EDT) HIV-1/2 ANTIGEN AND ANTIBODIES, 4TH GENERATION W/ REFLEX NON-REACT ROLANDO NON-REACT ROLANDO [facility] Comment: HIV-1 antigen and HIV-1/HIV-2 antibodies were not detected. There is no laboratory evidence of HIV infection. ?? PLEASE NOTE: This information has been disclosed to you from records whose confidentiality may be protected by state law. ??If your state requires such protection, then the state law prohibits you from making any further disclosure of the information without the specific written consent of the person to whom it pertains, or as otherwise permitted by law. A general authorization for the release of medical or other information is NOT sufficient for this purpose. ? For additional information please refer to http://education.[employer]/faq/LUR554 (This link is being provided for informational/ educational purposes only.) ? The performance of this assay has not been clinically validated in patients less than 2 years old. ?? 07/10/2020 10:0 8 AM EDT us Suzy HALL LAB BLOOD ORDERABLES Ivon l Result [facility] [address] from Last 3 Months or Most Recently Relevant to Health Maintenance [facility] FULL HSN FULL DENTAL-[employer] MEDICAID LIMITED ADULT DENTAL - HSN FULL (MEDICAID) Care Teams Car Repair Supervisor Relationship Specialty Start Date End Date Name, MD Carlyle [address] [place] [phone] PCP - General Family Medicine 11/29/18
--- OUTSIDE RECORDS SUMMARY | 2024-05-29 11:30 | XMS_ITS | Encounter Summary ---
Author Organization [employer] Address [address]t [place] [address] Care Team Providers Care Director Of Provider Relations Name Role Phone Name, Carlyle ARMENTA Primary Care Provider [phone] Encounter Details Date Type Department Care Team (Late st Contact Info) Description 05/26/2024 Orders Only [facility] [address] [place], [place] [phone] ProviderMasha MD Social History Tobacco Use Types Packs/Day Years [...] t he electric, gas, oil or water [email or web address] threatened to shut off services in your home? No 06/15/2023 Depression Answer Date Recorded Patient Health Questionnaire-2 Score 2 06/23/2023 Comments No Sex and Gender Information Value Date Recorded Sex Assigned at Female 04/27/2022 11:37 AM EDT Legal Sex Female 2:59 PM EST Gender Identity Female 04/27/2022 11:37 AM EDT Sexual Orientation Choose not to disclose 2022 11:37 AM EDT documented as of this encounter Plan of Treatment Upcoming Encounters Date Type Department Care Team (Late st Contact Info) Description 06/21/2024 10:00 AM EDT Office Visit [facility] [address] [place] [address] [phone] Meri Oneal CNM [address] [place] [phone] 08/17/2024 10:30 AM EDT Office Visit [address] [phone] Name, MD Carlyle [address] [place] [phone] documented as of this encounter Procedures Procedure Name Priority Date/Time Associated Diagnosis Comments CYTOLOGY, NON-INTERVENTIONAL PHYSICIAN Routine 04/19/2024 11: 19 AM EST documented in this encounter Results * Cytology, Non-INTERVENTIONAL PHYSICIAN (04/19/2024 11:19 AM EST) us Historical Provider LAB CYTOLOGY ORDERABLES E dited Result - Final documented in this encounter Visit Diagnoses Not on filedocumented in this encounter Additional Health Concerns Assessment Noted Time PHQ-9 Depression Total Score: 4 06/23/19 24 9:57 AM EDT documented as of this encounter Care Teams Director Of Provider Relations Relationship Specialty Start Date End Date Name, MD Carlyle [address] [place] [phone] PCP - General Family Medicine 11/29/18 documented as of this encounter
--- OUTSIDE RECORDS SUMMARY | 2024-05-29 11:30 | XMS_ITS | Encounter Summary ---
Author Organization [employer] [facility] Address [address] [place] [address] Care Team Providers Care Motor Vehicle Licence Examiner Name Role Phone Name, Carlyle ARMENTA Primary Care Provider [phone] Encounter Details Date Type Department Care Team (Latest Contact Info) Description 12/07/2018 Abstract [facility] CON[facility] Dental, Provider, DDS Social History Tobacco Use Types Packs/Day Years Used Date Smoking Tobacco: Never Assessed Comments Unknown Sex and Gender Information Value Date Recorded Sex Assigned at Female 04/27/2022 11:37 AM EDT Legal Sex Female 2:59 PM EST Gender Identity Female 04/27/2022 11:37 AM EDT Sexual Orientation Choose not to disclose 2022 11:37 AM EDT documented as of this encounter Plan of Treatment Upcoming Encounters Date Type Department Care Team ( st Contact Info) Description 06/21/2024 10:00 AM EDT Office Visit [facility] [address] [place] [phone] Meri Oneal CNM [address] [place] [phone] 08/17/2024 10:30 AM EDT Office Visit [facility] [address] [place] [phone] Carlyle Amaya MD [address] [place] [phone] documented as of this encounter Visit Diagnoses Not on filedocumented in this encounter Care Teams Motor Vehicle Licence Examiner Relationship Specialty Start Date End Date Carlyle Amaya MD [address] [place] [address], [place] [address] PCP - General Family Medicine 11/29/18 documented as of this encounter
--- OUTSIDE RECORDS SUMMARY | 2024-05-29 11:30 | XMS_ITS | Referral Summary ---
Author Organization [facility] Address [address] [place] [address] Care Team Providers Care Newspaper Subscription Solicitor Name Role Phone Pavel Chang Primary Care Provider + Allergies No known active allergies Medications fluticasone propionate (FLONASE) 50 mcg/actuation nasal spray Administer 1 spray into each nostril daily. Active venlafaxine (EFFEXOR) 37.5 mg tablet Take 37.5 mg by mouth 2 times a day. Active cetirizine (ZyrTEC) 10 mg tablet Take 10 mg by mouth once a day. Active cholecalciferol (VITAMIN D3) 2,000 unit tabletIndicatio ns:Vitamin D deficiency Take 2 tablets (4,000 Units total) by mouth once a day. 60 tablet 11 2 Active calcium carbonate (OS-DWIGHT) 500 mg calcium (1,250 mg) tabletIndicatio ns:Menopause Take 1 tablet (500 mg total) by mouth once a day. 30 tablet 11 2 Active Active Problems Problem Noted Date Diagnosed Date Migraine 11/20/2020 Menopause 11/20/2020 Allergic rhinitis 11/20/2020 Vitamin D deficiency 11/20/2020 Hyperparathyroidism 11/20/2020 Hypercalcemia 11/20/2020 Social History Tobacco Use Types Packs/Day Years [...] file Not on file Not on file Last Filed Vital Signs Vital Sign Reading Time Taken Comments Blood Pressure 145/91 04/23/2021 11:16 AM EST Pulse 86 04/23/2021 11:16 AM EST Temperature - - Respiratory Rate - - Oxygen Saturation - - Inhaled Oxygen Concentration - - Weight 68 kg (150 lb) 04/23/2021 11:16 AM EST Height 160 cm (5' 2.99 ) 11/20/2020 9:48 AM EDT Body Mass Index 26.58 11/20/2020 9:48 AM EDT Plan of Treatment Not on file Insurance [place] [employer] Care Teams Newspaper Subscription Solicitor Relationship Specialty Start Date End Date Pavel Chang [address] [place] [phone] PCP - General Internal Medicine 02/02/19
--- OUTSIDE RECORDS SUMMARY | 2024-05-29 11:30 | XMS_ITS | Encounter Summary ---
Author Organization [employer] [place] [facility] Address [address] [facility] [address] [place] [address] Care Team Providers Care Cap Parts Cutter Name Role Phone Name, Carlyle ARMENTA Primary Care Provider [phone] Encounter Details Date Type Department Care Team (Latest Contact Info) Description 12/24/2021 Abstract [facility] CONVERSIONS Dental, Provider, DDS Social History Tobacco [...] Description 06/21/2024 10:00 AM EDT Office Visit [facility] [address] [place] [phone] Meri Oneal CNM [address] [place] [phone] 08/17/2024 10:30 AM EDT Office Visit [facility] [address] [place] [phone] Carlyle Amaya MD [address] [place] [address] documented as of this encounter Visit Diagnoses Not on filedocumented in this encounter Care Teams Cap Parts Cutter Relationship Specialty Start Date End Date Carlyle Amaya MD [address] [place] [address] PCP - General Family Medicine 11/29/18 documented as of this encounter
--- OUTSIDE RECORDS SUMMARY | 2024-05-29 11:30 | XMS_ITS | Clinical Summary ---
Author Organization [facility] Address [address] [place] [address] Care Team Providers Care Raised Printer Name Role Phone Pavel Chang Primary Care [...] D deficiency 11/20/2020 Hyperparathyroidism 11/20/2020 Hypercalcemia 11/20/2020 Family History Medical History Relation Name Comments Asthma Father Diabetes Mother Hypothyroidism Mother Kidney failure Mother Relation Name Status Comments Father Mother Alive Social History Tobacco Use Types Packs/Day Years [...] 11/20/2020 9:48 AM EDT Plan of Treatment Health Maintenance Due Date Last Done Comments Cervical Cancer Screening 1969 Cologuard 1969 Colon Cancer Screening 1969 Colonoscopy 1969 FOBT / Fit Test 1969 HIV Screening 1969 HPV and Pap Smear 1969 Pap Smear 1969 Sigmoidoscopy 1969 Hepatitis B Vaccines (1 of 3 - 19+ 3-dose series) 04/16 DTaP,Tdap,and Td Vaccines (1 - Tdap) 05/12/1991 Pneumococcal Vaccine: 50+ Years (1 of 1 - PCV) 020 Zoster Vaccines (1 of 2) 05/12/2019 Alcohol/Substance Use Screening 02/16/2024 Influenza Vaccine (Season Ended) 2024 RSV Vaccine (60+ years old a nd patients) (1 - 1-dose 75+ series) 2044 Mammogram Discontinued 01/18/2018 Insurance [employer] Member Subscriber Plan / Payer (Ef fective 2019-Present) Name:Mini Rodriguez Relation to Subscriber:Self Name:Mini Rodriguez Payer ID:[id number] Group ID:Not on file Type:Not on file Address: [address] [place] [address] HSNO/FREE CARE Care Teams Raised Printer Relationship Specialty Start Date End Date Pavel Chang [address] [place] [id number] PCP - General Internal Medicine 02/02/19
--- OUTSIDE RECORDS SUMMARY | 2024-05-29 11:30 | XMS_ITS | Encounter Summary ---
Author Organization [facility] Address [address] [facility] [address] [place] [address] Care Team Providers Care Captain Fishing Vessel Name Role Phone Name, Carlyle ARMENTA Primary Care Provider [phone] Encounter Details Date Type Department Care Team (Latest Contact Info) Description 01/15/2021 Abstract [facility] CONVERSIONS Dental, Provider, DDS Social History Tobacco [...] Description 06/21/2024 10:00 AM EDT Office Visit [facility] MEDICINE [address] [place] [id number] Meri Oneal CNM [address] [place] [phone] 08/17/2024 10:30 AM EDT Office Visit [facility] MEDICINE [address] [place] [phone] Carlyle Amaya MD [address] [place] [phone] documented as of this encounter Visit Diagnoses Not on filedocumented in this encounter Care Teams Captain Fishing Vessel Relationship Specialty Start Date End Date Carlyle Amaya MD [address] [place] [address] PCP - General Family Medicine 11/29/18 documented as of this encounter
== END 2024-05-29 10:10 | disposition home or self-care (01) ==
LOC: HO.MAMMO 10:09
PROVIDERS: PCP Internal Medicine Geriatric Medicine; Visit Provider Internal Medicine Geriatric Medicine
DX: Z12.31 Encounter for screening mammogram for malignant neoplasm of breast (principal)
CPT/HCPCS: 77063; 77067

== ENCOUNTER → 2024-05-29 10:45 | Outpatient (BNV) | payer OTHER, SELFPAY | PROVIDERS: PCP Internal Medicine Geriatric Medicine; Visit Provider Internal Medicine | DX: Z12.31 Encounter for screening mammogram for malignant neoplasm of breast (principal) | CPT/HCPCS: 77063; 77067 ==